=== PATIENT | male | born 1965 | race Caucasian/White ===

== ENCOUNTER → 2016-10-20 | Day surgery (SDC) | payer BC ==
[2016-10-13 08:23] VITALS: BMI 29.0
[~2016-10-20] VITALS: Ht 185.4 cm; Wt 102.3 kg
[~2016-10-20] MED LIST: LIDOCAINE HCL 2% 2 ML VIAL (20MG/ML) ONE; MIDAZOLAM HCL 1 MG/ML 2ML VIAL ONE; ONDANSETRON INJ 2 MG/ML 2 ML VIAL ONE; PROPOFOL IV EMULSION 10 MG/ML 20 ML VIAL IV ONE
--- NOTE | 2016-10-20 13:13 | Endo History and Physical ---
History & Physical Date of Service: Oct 20, 2016. Chief Complaint: Screening Referring Physician: Dr. Shah History of Present Illness 50 yo CM who presents for screening colonoscopy. Past Surgical History Hx Cardiac Surgery: No Hx Internal Defibrillator: No Hx Pacemaker: No Hx Abdominal Surgery: No Hx of Implantable Prosthesis: No Hx Post-Op Nausea and Vomiting: No Hx Cancer Surgery: No Hx Thoracic Surgery: No Hx Orthopedic: Yes (REPAIR BICEP LEFT ) Hx Urinary Tract Surgery: No Family History None Social History Smoking Status: Never Smoker Hx Substance Use: No Hx Alcohol Use: Yes (OCAS) Allergies Coded Allergies: No Known Allergies (Unverified , 10/13/16) Current Medications Reported Home Medications Medications Dose Route/Sig Max Daily Dose Days Date Category No Active Prescriptions or Reported Medications Rx Vital Signs Weight (Kilograms): 102.27 Height (Feet): 6 Height (Inches): 1 Physical Exam General Appearance: WD/WN, no apparent distress Respiratory/Chest: Auscultation: breath sounds normal Cardiovascular: Heart Auscultation: RRR Abdomen: Bowel Sounds: normal Inspection & Palpation: soft, non-distended, no tenderness, guarding & rebound Assessment and Plan Assessment: 50 yo CM who presents for screening colonoscopy. Plan: Proceed with colonoscopy.
[2016-10-20 13:14] VITALS: Ht 185.4 cm; Wt 102.3 kg
--- NOTE | 2016-10-20 13:51 | Discharge Instructions ---
Endoscopy Patient Instructions Date / Procedure(s) Performed Oct 20, 2016. Colonoscopy Allergy Information Coded Allergies: No Known Allergies (Unverified , 10/13/16) Discharge Date / Findings Oct 20, 2016. Colon polyps Internal hemorrhoids Medication Instructions Reported Home Medications Medications Dose Route/Sig Max Daily Dose Days Date Category No Active Prescriptions or Reported Medications Rx Provider Instructions Activity Restrictions - No exercising or heavy lifting for 24 hours. - Do not drink alcohol the day of the procedure. - Do not drive a car or operate machinery until the day after the procedure. - Do not make any important decisions or sign important papers in 24 hours after the procedure. Following Day: - Return to full activity which may include returning to work/school. Diet Start your diet with liquids and light foods (jello, soup, juice, toast). Then eat your usual diet if not nauseated. Treatment For Common After Affects For mild abdominal pain, bloating, or excessive gas: - Rest - Eat lightly - Lie on right side Follow-Up Information Follow-up with Dr. Shah as scheduled Anesthesia Information What You Should Know You have had a procedure that required some medicine to reduce anxiety and discomfort. This treatment is called moderate sedation. After receiving the treatment, you may be sleepy, but you will be able to breathe on your own. The effects of the treatment may last for several hours. Follow these instructions along with Activity/Diet recommendations noted above: * Do NOT do anything where dizziness or clumsiness would be dangerous. * Rest quietly at home today, then you can be up and about tomorrow. * Have a responsible person stay with you the rest of today. * You may have had an I.V. today. If so, you may take the dressing off later today. Recommendations Call your doctor if: * Trouble breathing * Continuous vomiting for more than 24 hours * Temperature above 101 degrees * Severe abdominal pain or bloating * Pain not relieved by pain medicine ordered * There is increased drainage or redness from any incision * A large amount of rectal bleeding greater than 2-3 tablespoons. (If you had a polyp/s removed or have hemorrhoids, a small amount of blood - from the rectum is to be expected.) * You have any unanswered questions or concerns. IN THE EVENT OF A SERIOUS EMERGENCY, GO TO THE NEAREST EMERGENCY ROOM Your discharge instructions were prepared by provider Aj Pearce. Patient Instructions Signature Page Gatito Bruner Patient (or Guardian) Signature/Date: I have read and understand the instructions given to me by my caregivers. Caregiver/RN/Doctor Signature/Date: The above-named patient and/or guardian has received patient instructions on this date. + Original Patient Signature Page (only) stays with chart. Please make copy for patient.
--- NOTE | 2016-10-20 13:52 | GI REPORT ---
Procedure Date: 10/20/2016 1:23 PM Procedure: Colonoscopy Indications: Screening for colorectal malignant neoplasm Medicines: Monitored Anesthesia Care Complications: No immediate complications. Estimated Blood Loss: Estimated blood loss: none. Procedure: Pre-Anesthesia Assessment: - Prior to the procedure, a History and Physical was performed, and patient medications and allergies were reviewed. The patient's tolerance of previous anesthesia was also reviewed. The risks and benefits of the procedure and the sedation options and risks were discussed with the patient. All questions were answered, and informed consent was obtained. Prior Anticoagulants: The patient has taken no previous anticoagulant or antiplatelet agents. ASA Grade Assessment: II - A patient with mild systemic disease. After reviewing the risks and benefits, the patient was deemed in satisfactory condition to undergo the procedure. After I obtained informed consent, the scope was passed under direct vision. Throughout the procedure, the patient's blood pressure, pulse, and oxygen saturations were monitored continuously. The Scope was introduced through the anus and advanced to the terminal ileum. The colonoscopy was performed without difficulty. The patient tolerated the procedure well. The quality of the bowel preparation was good. The terminal ileum, ileocecal valve, appendiceal orifice, and rectum were photographed. Findings: Three sessile polyps were found in the sigmoid colon and in the ascending colon. The polyps were 5 to 8 mm in size. These polyps were removed with a hot snare. Resection and retrieval were complete. Non-bleeding internal hemorrhoids were found during retroflexion. The hemorrhoids were small. Impression: - Three 5 to 8 mm polyps in the sigmoid colon and in the ascending colon, removed with a hot snare. Resected and retrieved. - Non-bleeding internal hemorrhoids. Recommendation: - Resume previous diet. - Continue present medications. - Repeat colonoscopy for surveillance based on pathology results. - Return to primary care physician as previously scheduled. Aj Pearce DO 10/20/2016 1:50:44 PM This report has been signed electronically. Note Initiated On: 10/20/2016 1:23 PM I attest to the content of the Intraoperative Record and orders documented therein, exceptions below
[2016-10-20 14:16] VITALS: BP 126/80; PULSE 56; O2SAT 97
--- NOTE | 2016-10-20 14:58 | Anesthesiology Progress Note ---
Anesthesia Post Op Note Date & Time Oct 20, 2016 at 14:57 Vital Signs Pain Intensity: 0 Vital Signs Past 12 Hours Date Time Temp Pulse Resp B/P Pulse Ox O2 Delivery O2 Flow Rate FiO2 10/20/16 14:16 56 16 126/80 97 Room Air 10/20/16 14:01 61 16 127/78 97 Room Air 10/20/16 13:46 76 16 133/79 98 Room Air 10/20/16 13:20 36.6 80 18 157/82 98 Room Air Notes Mental Status: alert / awake / arousable, participated in evaluation Pt Amnestic to Procedure: Yes Nausea / Vomiting: adequately controlled Pain: adequately controlled Airway Patency, RR, SpO2: stable & adequate BP & HR: stable & adequate Hydration State: stable & adequate Anesthetic Complications: no major complications apparent
== END | disposition home or self-care (01) ==
LOC: C.GI 12:23
PROVIDERS: ATTEND Internal Medicine
DX: Z12.11 Encounter for screening for malignant neoplasm of colon (principal); K63.5 Polyp of colon; K64.8 Other hemorrhoids; Z98.890 Other specified postprocedural states; Z68.29 Body mass index [BMI] 29.0-29.9, adult

== ENCOUNTER 2017-08-18 22:22 | Emergency (ER) | payer BC ==
[~2017-08-18] VITALS: Ht 182.9 cm; Wt 108.8 kg
[2017-08-18 22:24] VITALS: TEMP 36.7; Ht 182.9 cm; Wt 108.8 kg
--- NOTE | 2017-08-18 22:54 | EMERGENCY ROOM VISIT NOTE ---
History First contact with patient: 22:33 Chief Complaint: NOSE BLEED (MINOR) Stated Complaint: BLOODY NOSE History of Present Illness The patient is a 51 year old male who presents to the Emergency Room with complaints of nosebleeds. The patient reports that over the past 2 weeks, he has had frequent nosebleeds, anytime that he blows his nose. He states that the nosebleeds last for approximately 15 minutes. He plugs his nose with tissues and this stops the bleeding. He states these are occurring every 2-3 days. The patient does admit that he typically gets minor nosebleeds every year around this time. 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 He does have a humidifier in the house. He denies any lightheadedness/dizziness. He does not take anticoagulants. He denies any recent URI. Review of Systems A complete 10 point review of systems was reviewed with the patient with pertinent positives and negatives as per history of present illness. All else were negative. Past Medical/Surgical History Medical Problems: (1) No significant past medical history Surgical Problems: (1) No significant past surgical history Social History Smoking Status: Never Smoker Housing Status: lives with family Current/Historical Medications No Active Prescriptions or Reported Meds Physical Exam Vital Signs Date Time Temp Pulse Resp B/P (MAP) Pulse Ox O2 Delivery O2 Flow Rate FiO2 08/18/17 23:05 78 20 134/70 98 08/18/17 22:24 36.7 75 16 157/89 99 Room Air Physical Exam VITALS: Vitals are noted on the nurse's note and reviewed by myself. Vital signs stable. GENERAL: This is a 51-year-old male, in no acute distress, nondiaphoretic, well- developed well-nourished. SKIN: The skin was without rashes. EARS: External auditory canals clear, tympanic membranes pearly neumann without erythema or effusion bilaterally. EYES: Pupils equal round and reactive to light and accommodation. NOSE: No active bleeding. The nasal mucosa of bilateral naris is very friable, inflamed and erythematous. MOUTH: Mucous membranes moist. NEURO: Patient was alert and oriented to person place and time. Medical Decision & Procedures Medical Decision The patient was evaluated as above. He has been experiencing frequent nosebleeds. His nasal mucosa is very friable and inflamed appearing. I had a lengthy discussion with the patient regarding prevention of these nosebleeds. I discussed use of a humidifier in the bedroom and saline nasal spray/Vaseline in the nostrils. I advised him to use Afrin in the nostrils if he does incur a nosebleed and he was provided with nasal clips. He was advised to follow-up with ENT if he has recurrent nosebleeds despite this treatment. He verbalized understanding of my assessment and treatment plan and was discharged home in good condition. Medication Reconcilliation Current Medication List: was personally reviewed by me Blood Pressure Screening Patient's blood pressure: Normal blood pressure Impression Primary Impression: Epistaxis Departure Information Dispostion Home / Self-Care Condition GOOD Prescriptions No Active Prescriptions or Reported Meds Referrals Pro,Rc Adair M.D. (PCP) Patient Instructions My [facility] Additional Instructions You have been treated in the Emergency Department today for your Nose Bleed ( Epistaxis). You should consider using a humidifier to help moisten the air and decrease instances of nosebleeds. You can use ruou-rzo-liskwyl saline nasal sprays to help moisten the nasal mucosa and decrease instances of nosebleeds. You may also apply Vaseline to the inside of the nose daily to help moisten the tissue. If you do get a nosebleed, use 2 squirts of Afrin (oxymetazoline) in the affected nostril then apply the nasal clip for 15-20 minutes. If you have continued bleeding you should go to the emergency department. As with any trip to the Emergency Department, you should follow-up with your Primary Care Provider from today's visit. Return to the emergency department if your symptoms persist despite treatment plan outlined above or if the following symptoms occur: uncontrollable nosebleed , dizziness, lightheadedness, pre-syncope, or re-bleed.
[2017-08-18 23:05] VITALS: BP 134/70; PULSE 78; O2SAT 98
== END 2017-08-18 23:06 | disposition home or self-care (01) ==
LOC: C.EDB 22:23 → C.EDC 23:06
DX: R04.0 Epistaxis (principal)

== ENCOUNTER 2021-12-20 10:13 | Inpatient (IN) ==
[2021-12-20] MEDS ORDERED: SODIUM CHLORIDE 0.9% 1000ML 1,000 ML IV ONE (10:25)
--- NOTE | 2021-12-20 10:38 | XRay Report ---
XR chest 1V portable CLINICAL HISTORY: Chest Pain. COMPARISON STUDY: 11/15/2018 TECHNIQUE: 1 view of the chest FINDINGS: Single frontal view of the chest demonstrates the heart size to be accentuated by decreased inspirato ry effort. There is elevation of hemidiaphragms and crowding the bronchovascular markings at the lung bases. However, there is evidence for mild central vascular congestion. The presence of small bilate ral pleural effusions cannot be excluded. Follow-up PA and lateral radiographs would be helpful for f urther evaluation. There are no confluent alveolar opacities present . There is no acute osseous path ology. IMPRESSION: 1. Decreased inspiration with evidence for mild central vascular congestion. 2. Suspicion of small bilateral pleural effusions and follow-up PA and lateral radiographs are recomm ended. ACT 112: Negative or not required by law. Electronically signed by: Elroy Lange M.D. 12/20/2021 10:37 AM
[2021-12-20 10:39] LABS: Basophils # (auto) 0.01 K/uL (0-0.2); Basophils % (auto) 0.1 %; Eosinophils # (auto) 0.74 K/uL (0-0.5); Eosinophils % (auto) 7.1 %; Hematocrit (blood only) 43.1 % (42-52); Hemoglobin 14.3 g/dL (14.0-18.0); Immature Granulocytes # (auto) 0.11 K/uL (0.00-0.02); Immature Granulocytes % (auto) 1.1 %; Lymphocytes # (auto) 0.86 K/uL (1.2-3.4); Lymphocytes % (auto) 8.2 %; Mean Corpuscular Hemoglobin 28.8 pg (25-34); Mean Corpuscular Hgb Conc 33.2 g/dL (32-36); Mean Corpuscular Volume 86.9 fL (80-100); Mean Platelet Volume 9.6 fL (7.4-10.4); Monocytes % (auto) 5.7 %; Neutrophils # (auto) 8.14 K/uL (1.4-6.5); Neutrophils % (auto) 77.8 %; Platelet Count 219 K/uL (130-400); RDW Coefficient of Variation 13.6 % (11.5-14.5); Red Blood Count 4.96 M/uL (4.7-6.1); White Blood Count 10.46 K/uL (4.8-10.8)
[2021-12-20 11:01] LABS: Albumin Globulin Ratio 1.4 (0.9-2); BUN Creatinine Ratio 19.2 (10-20); Bilirubin,Total 0.9 mg/dl (0.2-1.0); Creatinine Clr Calc Pharmacy 87.2 ml/min; Est GFR (African American) 77.9 ml/min; Est GFR (Non-African American) 67.2 ml/min; Globulin 2.9 gm/dl (2.5-4.0); Magnesium 2.3 mg/dl (1.7-2.4); Phosphorus 3.1 mg/dl (2.5-4.9); Potassium 3.7 mmol/L (3.5-5.1); Total Protein 6.9 gm/dl (6.0-8.3)
[2021-12-20 11:16] LABS: Troponin I High Sensitivity 104.2 pg/ml (0-20)
[2021-12-20 11:29] LABS: Influenza A virus by PCR Negative (Neg); Influenza B virus by PCR Negative (Neg); RSV by PCR Negative (Neg); SARS CoV2 RNA(COVID-19) InHosp NEGATIVE (Negative)
--- NOTE | 2021-12-20 12:32 | Electrocardiogram Report ---
Test Reason : Blood Pressure : / mmHG Vent. Rate : 144 BPM Atrial Rate : 144 BPM P-R Int : 216 ms QRS Dur : 090 ms QT Int : 252 ms P-R-T Axes : 000 076 -10 degrees QTc Int : 390 ms Atrial flutter with rapid ventricular response Abnormal ECG When compared with ECG of 15-NOV-2018 22:01, Atrial flutter has replaced sinus rhythm Confirmed by Wiley Tapia ([id number]) on 12/20/2021 12:32:21 PM Referred By: REFERRED SELF Confirmed By:Riley Tapia
--- NOTE | 2021-12-20 13:47 | Ultrasound Report ---
US gallbladder CLINICAL HISTORY: upper abdominal pain. COMPARISON: None. TECHNIQUE: Multiple grayscale and color images of the right upper quadrant of the abdomen. FINDINGS: The study is limited by overlying bowel gas. Pancreas: The imaged portion of the pancreas is within normal limits with no focal mass or peripancre atic fluid collection identified. Liver: The liver is homogeneous in echogenicity There is no evidence for a focal mass. There is no in trahepatic biliary duct dilatation. Gallbladder: The gallbladder is well distended with no evidence of cholelithiasis, wall thickening or pericholecystic edema. Common Bile Duct: (CBD): It is normal in size measuring 5 mm Inferior Vena Cava (IVC): The imaged IVC is patent. Right kidney: There is no evidence for hydronephrosis, calculus or gross renal mass. The kidney is no rmal in size. IMPRESSION: 1. Essentially negative limited right upper quadrant abdominal ultrasound. ACT 112: Negative or not required by law. Electronically signed by: Elroy Lange M.D. 12/20/2021 1:46 PM
--- NOTE | 2021-12-20 14:35 | History & Physical Report ---
Date of Service December 20, 2021 Assessment & Plan (1) Atrial flutter with rapid ventricular response: (2) Elevated troponin: Plan: Atrial flutter with rapid ventricular response Currently sinus rhythm Elevated troponins may be related to this. Get 2D echo Telemetry monitoring Start metoprolol 12.5 mg twice daily Cardiology consult Patient denied any history of hypertension, DE/CVA/ischemic vascular disease, diabetes. However, pressure measurement has been between 130s over 80s to 150/99 in the ER this admission. Some previous records from 2019 also suggested some blood pressure of 150s over 90s. Patient probably has history of hypertension. His [id number] score is likely 0-1 Considering all the above and elevated trop, will start on heparin drip for now until full workup and Cardiology evaluation. May need to be on only antiplatelet on discharge Trend trop (3) Elevated LFTs: Plan: ALT 60, alk phos is 185. These are mildly elevated. Review of CT abdomen pelvis from 12/18/2021 noted pericholecystic fluid with findings suggestive of possible cholecystitis. However, considering absent of GI symptoms, no leukocytosis, no fever, unremarkable gall bladder USS at this time; will only monitor LFTs and hold off initiating treatment for acute cholecystitis Monitor LFTs (4) Cough: Plan: Chest x-ray noted suspicion of small bilateral pleural effusion and PA and lateral radiographs recommended. Will get PA and lateral chest x-rays. Antitussives as needed (5) DVT prophylaxis: Plan: Heparin drip as noted above History of Present Illness Chief Complaint: Cough, rapid heart rate. Primary Care Provider: Deb Baca DO 55-year-old man with no known chronic medical problems who presents from urgent care for rapid heart rate. Patient reported he started having abdominal pain 6 days ago and was central abdomen, moderate, associated with heartburns. Started having dry cough 5 days ago. The abdominal pain patient saw PCP 3 days ago who recommended abdominal CT which was done and showed . Pericholecystic fluid with some fat stranding. Patient reported that abdominal pain has resolved since yesterday. However, continues to have persistent dry cough associated with some chest discomfort with coughing. Denies shortness of breath, fevers, chills Denies abdominal pain, nausea, vomiting, diarrhea, constipation Denies dysuria, frequency, urgency, hematuria Patient presented to urgent care for the cough and was noted to have elevated heart rate and was sent to the ER. In ER was noted to be in a flutter with RVR. Got IV fluids and spontaneously reverted to sinus rhythm. During my evaluation, patient flipped to Aflutter on monitor and reverted back to sinus after some minutes. Patient denies any chronic home medication except for [id number] cough medicine he took last few days. Denies any known allergies No surgical history No chronic medical problems Denies smoking Denies illicit drug use Drinks alcohol occasionally Allergies Allergy/AdvReac Type Severity Reaction Status Date / Time No Known Allergies Allergy Unverified 01/29/19 15:27 Home Medications Medication Instructions Recorded Confirmed Type No Known Home Medications 01/29/19 01/29/19 History Past Med/Surg History Medical History (Updated 12/20/21 @ 14:53 by Lizett Banda MD) No significant past medical history Family History (Updated 01/29/19 @ 15:34 by Loislou Kemp) Sister Breast cancer Mother Stroke Other Diabetes Social History Smoking Status: Never smoker Preferred Language: Icelandic Current Living Situation: Spouse current occupational status: employed Feels Safe at Home: Yes Review of Systems Review of Systems: All systems reviewed & are unremarkable except as noted in HPI & below Physical Exam Constitutional: + well hydrated; no acute distress Eyes: PERRL, conjunctivae normal, anicteric sclerae ENMT: external ear and nose normal, oropharynx normal Respiratory: normal respiratory effort, lungs clear to auscultation Cardiovascular: Rate/Rhythm: regular rate and regular rhythm S1 S2 Gastrointestinal (Abdomen): normal bowel sounds, soft, nontender, no hepatosplenomegaly Musculoskeletal: no cyanosis or clubbing, extremities motor strength 5/5 Neurologic: PERRL, EOMI, accommodation nl, no face palsy, no dysarthria Psychiatric: A+Ox3, euthymic affect Results & Data Results & Data ([facility]) Vital Signs (Past 12 Hours) Vital Signs Temp Pulse Pulse Resp BP BP Pulse Ox 12/20/21 13:31 82 16 134/81 96 12/20/21 12:26 88 16 131/81 95 12/20/21 10:55 89 20 96 12/20/21 10:40 122 H 20 136/95 95 12/20/21 10:29 152 H 20 156/99 H 95 12/20/21 10:28 12/20/21 10:16 36.6 C 143 H 18 134/87 99 Laboratory Results Abnormal lab results 12/20/21 12/20/21 12/20/21 Range/Units 10:25 10:25 12:18 Neut # (Auto) 8.14 H (1.4-6.5) K/uL Lymph # (Auto) 0.86 L (1.2-3.4) K/uL [place] # (Auto) 0.60 H (0.11-0.59) K/uL Eos # (Auto) 0.74 H (0-0.5) K/uL Immature Gran # (Auto) 0.11 H (0.00-0.02) K/uL Glucose 162 H (70-99(Fasting)) mg/dl ALT 60 H (7-52) U/L Alkaline Phosphatase 185 H (34-104) U/L Troponin I High Sens 104.2 H* 108.3 H* (0-20) pg/ml Diagnostic Findings Gallbladder ultrasound Pancreas: The imaged portion of the pancreas is within normal limits with no focal mass or peripancreatic fluid collection identified. Liver: The liver is homogeneous in echogenicity There is no evidence for a focal mass. There is no intrahepatic biliary duct dilatation. Gallbladder: The gallbladder is well distended with no evidence of cholelithiasis, wall thickening or pericholecystic edema. Common Bile Duct: (CBD): It is normal in size measuring 5 mm Inferior Vena Cava (IVC): The imaged IVC is patent. Right kidney: There is no evidence for hydronephrosis, calculus or gross renal mass. The kidney is normal in size. IMPRESSION: 1. Essentially negative limited right upper quadrant abdominal ultrasound. Chest x-ray Single frontal view of the chest demonstrates the heart size to be accentuated by decreased inspiratory effort. There is elevation of hemidiaphragms and crowding the bronchovascular markings at the lung bases. However, there is evidence for mild central vascular congestion. The presence of small bilateral pleural effusions cannot be excluded. Follow-up PA and lateral radiographs would be helpful for further evaluation. There are no confluent alveolar opacities present . There is no acute osseous pathology. IMPRESSION: 1. Decreased inspiration with evidence for mild central vascular congestion. 2. Suspicion of small bilateral pleural effusions and follow-up PA and lateral radiographs are recommended.
--- NOTE | 2021-12-20 16:31 | Emergency Department Note ---
Impression & Plan Atrial flutter with rapid ventricular response, Elevated troponin, Cough, Dehydration ED Provider Note NAME: SILVERIO MACEDO AGE: 55 SEX: M ARRIVES VIA: Walk-In INFORMANT: ED PROVIDER(S): Husam Stauffer MD CHIEF COMPLAINT: Atrial flutter, referred. PLAN: Disposition: Admit MEDICAL DECISION MAKING: The patient is a pleasant 55-year-old gentleman with a past medical history of who presents to the emergency department for evaluation of tachycardia after the patient presented to urgent care for evaluation of cough and was hoping to get "cough medicine". The patient denies having any sensation of palpitations or chest pain. He reports that he has been dealing with abdominal pain over the past week that was intermittently related to his gallbladder and had an outpatient CT scan performed this past week. He reports because of his abdomina l symptoms he has not been eating or drinking much at all for the past week. He denies any fevers, chills, diarrhea or urinary symptoms. On arrival, the patient is in no acute distress, afebrile with heart rate in the 130-150s and vital signs otherwise stable. He appears clinically dry. Lungs are clear. Abdomen is benign. EKG was performed and demonstrates atrial flutter in the 140s without overt acute ischemia. CXR with nonspecific bronchovascular congestion of lower lung lo. Small bilateral pleural effusions are noted. WBC, H/H and platelets within normal limits. Chemistry without metabolic acidosis. Electrolytes without significant abnormality. ALT is elevated at 60, nonspecific. Initial high-sensitivity troponin 104 high-sensitivity troponin 108, stable nonspecific. COVID-19 PCR and influenza PCR were negative. Upon reevaluation the patient was feeling improved after IV fluid hydration with heart rate normal sinus 80-90s. Formal Gallbladder US was negative for acute pr ocess. Given the patient does not sense his fast heart rate, it is unclear how long or frequently he may have had aflutter with or without RVR. Findings were reviewed with the patient and his at the bedside. Given the patient's new onset paroxysmal atrial flutter with elevated troponin we did agree with plan for admission for further evaluation and management. Case was discussed with Dr. Veronika Rob hospitalist, who will evaluate the patient for admission. Nursing notes reviewed and agree them. Prior medical records reviewed Vital Signs: reviewed and remarkable for tachycardia. Differential diagnosis: Premature contractions, electrolyte abnormality, cardiac dysrhythmia, thyroid dysfunction, pulmonary embolism, infection, gastrointestinal, as well as other pathologies. ER treatment provided: See below. Diagnostics interpreted by me: ECG 1024: Atrial flutter with RVR, 144 bpm, no ectopy, no overt ST elevation or depression, QTC 390, QRS 90. ECG 1230: Normal sinus rhythm, 84 bpm, no ectopy, no overt ST elevation or depression, QTC 437, QRS 84. Cardiac Monitoring: An order for continuous cardiac monitoring was placed and demonstrated atrial flutter, RVR, 144 bpm, no ectopy. Laboratory studies: See below Imaging studies: See below Consultation(s): Case was discussed with Dr. Veronika Rob hospitalist, who will evaluate the patient for admission. HPI: The patient is a pleasant 55-year-old gentleman with a past medical history of who presents to the emergency department for evaluation of tachycardia after the patient presented to urgent care for evaluation of cough and was hoping to get "cough medicine". The patient denies having any sensation of palpitations or chest pain. He reports that he has been dealing with abdominal pain over the past week that was intermittently related to his gallbladder and had an outpatient CT scan performed this past week. He reports because of his abdominal symptoms he has not been eating or drinking much at all for the past week. He denies any fevers, chills, diarrhea or urinary symptoms. ROS: See above HPI for pertinent positives & negatives. A total of 10 systems reviewed and were otherwise negative. VITALS:See Below PHYSICAL EXAMINATION: GENERAL: Awake, alert, well-appearing, in no distress HENT: Normocephalic, atraumatic. Oropharynx with dry mucous membranes and otherwise unremarkable. EYES: Normal conjunctiva. Sclera non-icteric. NECK: Supple. No nuchal rigidity. FROM. No JVD. RESPIRATORY: Clear to auscultation. CARDIAC: Tachycardic rate, normal rhythm. Extremities warm and well perfused. Pulses equal. ABDOMEN: Soft, non-distended. No tenderness to palpation. No rebound or guarding. No masses. RECTAL: Deferred. MUSCULOSKELETAL: Chest examination reveals no tenderness. The back is symmetrical on inspection without obvious abnormality. There is no CVA tenderness to palpation. No joint edema. LOWER EXTREMITIES: Calves are equal size bilaterally and non-tender. No edema. No discoloration. NEURO: Normal sensorium. No sensory or motor deficits noted. SKIN: No rash or jaundice noted. I have personally spent greater than 35 minutes of critical care time in the direct management of this patient. This includes bedside care, interpretation of diagnostic studies, and testing, discussion with consultants, patient, and family members, and other required patient management activities. This 35 minutes is in excess of all separately billable procedures. Husam Stauffer MD Past Med/Surg History Medical History No significant past medical history Family History Sister Breast cancer Mother Stroke Other Diabetes Social History Smoking Status: Never smoker Preferred Language: Nicaraguan Current Living Situation: Spouse current occupational status: employed Feels Safe at Home: Yes Allergies Allergies Allergy/AdvReac Type Severity Reaction Status Date / Time No Known Allergies Allergy Unverified 12/20/21 15:59 Home Meds Home Medications Medication Instructions Recorded Confirmed No Known Home Medications 01/29/19 12/20/21 Results & Data (ED) Vital Signs Vital Signs - 24 hr 12/20/21 10:16 12/20/21 10:25 12/20/21 10:28 Temperature 36.6 C Temperature Source Temporal Artery Scan Pulse Rate 143 H Pulse Rate [Left Apical] Pulse Rhythm [Left Apical] Pulse Strength [Left Apical] Respiratory Rate 18 Respiratory Effort / Characteristics Non-Labored Respiratory Depth Normal Respiratory Pattern Regular Blood Pressure 134/87 Blood Pressure [Left Arm] Blood Pressure Mean 102 Blood Pressure Mean [Left Arm] Blood Pressure Position [Left Arm] Pulse Oximetry 99 95 Oxygen Delivery Method Room Air Room Air Room Air Sepsis Recent Fever Within 48 Hours No Sepsis New/Unexplained Change in Mental Status No Sepsis Action Taken by Nursing No Action Required 12/20/21 10:29 12/20/21 10:40 12/20/21 10:55 Temperature Temperature Source Pulse Rate Pulse Rate [Left Apical] 152 H 122 H 89 Pulse Rhythm [Left Apical] Regular Regular Regular Pulse Strength [Left Apical] Normal Normal Normal Respiratory Rate 20 20 20 Respiratory Effort / Characteristics Non-Labored Non-Labored Non-Labored Respiratory Depth Normal Normal Normal Respiratory Pattern Blood Pressure Blood Pressure [Left Arm] 156/99 H 136/95 Blood Pressure Mean Blood Pressure Mean [Left Arm] 118 108 Blood Pressure Position [Left Arm] Lying Lying Pulse Oximetry 95 95 96 Oxygen Delivery Method Room Air Room Air Room Air Sepsis Recent Fever Within 48 Hours Sepsis New/Unexplained Change in Mental Status Sepsis Action Taken by Nursing 12/20/21 12:26 12/20/21 13:31 12/20/21 14:39 Temperature Temperature Source Pulse Rate Pulse Rate [Left Apical] 88 82 97 H Pulse Rhythm [Left Apical] Regular Regular Pulse Strength [Left Apical] Normal Normal Respiratory Rate 16 16 20 Respiratory Effort / Characteristics Non-Labored Non-Labored Respiratory Depth Normal Normal Respiratory Pattern Blood Pressure Blood Pressure [Left Arm] 131/81 134/81 142/95 H Blood Pressure Mean Blood Pressure Mean [Left Arm] 97 98 110 Blood Pressure Position [Left Arm] Lying Lying Pulse Oximetry 95 96 96 Oxygen Delivery Method Room Air Room Air Room Air Sepsis Recent Fever Within 48 Hours Sepsis New/Unexplained Change in Mental Status Sepsis Action Taken by Nursing Laboratory Data Attestation: I reviewed the patient's lab results. Result diagrams: 12/20/21 10:25 12/20/21 10:25 Lab Results 12/20/21 12/20/21 12/20/21 Range/Units 10:25 10:25 10:25 WBC 10.46 (4.8-10.8) K/uL RBC 4.96 (4.7-6.1) M/uL Hgb 14.3 (14.0-18.0) g/dL Hct 43.1 (42-52) % MCV 86.9 (80-100) fL MCH 28.8 (25-34) pg MCHC 33.2 (32-36) g/dL RDW Std Deviation 43.0 (36.4-46.3) fL RDW Coeff of Gentry 13.6 (11.5-14.5) % Plt Count 219 (130-400) K/uL MPV 9.6 (7.4-10.4) fL Immature Gran % (Auto) 1.1 % Neut % (Auto) 77.8 % Lymph % (Auto) 8.2 % Jackson % (Auto) 5.7 % Eos % (Auto) 7.1 % Baso % (Auto) 0.1 % Neut # (Auto) 8.14 H (1.4-6.5) K/uL Lymph # (Auto) 0.86 L (1.2-3.4) K/uL Jackson # (Auto) 0.60 H (0.11-0.59) K/uL Eos # (Auto) 0.74 H (0-0.5) K/uL Baso # (Auto) 0.01 (0-0.2) K/uL Immature Gran # (Auto) 0.11 H (0.00-0.02) K/uL Sodium 136 (136-145) mmol/L Potassium 3.7 (3.5-5.1) mmol/L Chloride 100 (98-107) mmol/L Carbon Dioxide 29 (21-32) mmol/L Anion Gap 7 (3-11) BUN 23 (6-23) mg/dl Creatinine 1.20 (0.6-1.4) mg/dl Est Cr Clr Drug Dosing 87.2 ml/min Est GFR ( Amer) 77.9 ml/min Est GFR (Non-Af Amer) 67.2 ml/min BUN/Creatinine Ratio 19.2 (10-20) Glucose 162 H (70-99(Fasting)) mg/dl Calcium 9.0 (8.5-10.1) mg/dl Phosphorus 3.1 (2.5-4.9) mg/dl Magnesium 2.3 (1.7-2.4) mg/dl Total Bilirubin 0.9 (0.2-1.0) mg/dl AST 26 (13-39) U/L ALT 60 H (7-52) U/L Alkaline Phosphatase 185 H (34-104) U/L Troponin I High Sens 104.2 H* (0-20) pg/ml Total Protein 6.9 (6.0-8.3) gm/dl Albumin 4.0 (3.4-5.0) gm/dl Globulin 2.9 (2.5-4.0) gm/dl Albumin/Globulin Ratio 1.4 (0.9-2) Lipase 62 (11-82) U/L TSH 0.935 (0.300-4.500) uIu/ml SARS-CoV-2 (PCR) (Negative) Influenza Type A (PCR) (Neg) Influenza Type B (PCR) (Neg) RSV (RT-PCR) (Neg) 06/12/22 06/12/22 Range/Units 10:43 12:18 WBC (4.8-10.8) K/uL RBC (4.7-6.1) M/uL Hgb (14.0-18.0) g/dL Hct (42-52) % MCV (80-100) fL MCH (25-34) pg MCHC (32-36) g/dL RDW Std Deviation (36.4-46.3) fL RDW Coeff of Gentry (11.5-14.5) % Plt Count (130-400) K/uL MPV (7.4-10.4) fL Immature Gran % (Auto) % Neut % (Auto) % Lymph % (Auto) % Jackson % (Auto) % Eos % (Auto) % Baso % (Auto) % Neut # (Auto) (1.4-6.5) K/uL Lymph # (Auto) (1.2-3.4) K/uL [place] # (Auto) (0.11-0.59) K/uL Eos # (Auto) (0-0.5) K/uL Baso # (Auto) (0-0.2) K/uL Immature Gran # (Auto) (0.00-0.02) K/uL Sodium (136-145) mmol/L Potassium (3.5-5.1) mmol/L Chloride (98-107) mmol/L Carbon Dioxide (21-32) mmol/L Anion Gap (3-11) BUN (6-23) mg/dl Creatinine (0.6-1.4) mg/dl Est Cr Clr Drug Dosing ml/min Est GFR ( Amer) ml/min Est GFR (Non-Af Amer) ml/min BUN/Creatinine Ratio (10-20) Glucose (70-99(Fasting)) mg/dl Calcium (8.5-10.1) mg/dl Phosphorus (2.5-4.9) mg/dl Magnesium (1.7-2.4) mg/dl Total Bilirubin (0.2-1.0) mg/dl AST (13-39) U/L ALT (7-52) U/L Alkaline Phosphatase (34-104) U/L Troponin I High Sens 108.3 H* (0-20) pg/ml Total Protein (6.0-8.3) gm/dl Albumin (3.4-5.0) gm/dl Globulin (2.5-4.0) gm/dl Albumin/Globulin Ratio (0.9-2) Lipase (11-82) U/L TSH (0.300-4.500) uIu/ml SARS-CoV-2 (PCR) NEGATIVE (Negative) Influenza Type A (PCR) Negative (Neg) Influenza Type B (PCR) Negative (Neg) RSV (RT-PCR) Negative (Neg) Administered Medications Heparin Sodium/Dextrose (Heparin Sodium/Dextrose) 25,000 units in 500 mls @ 20 mls/hr IV .Q24H [facility]; Protocol Stop: 01/19/22 19:14 Last Admin: 12/20/21 19:36 Dose: 1,000 units/hr, 20 mls/hr Documented by: [id number] Cosigned by: [id number] Discontinued Medications Heparin Sodium (Porcine) (Heparin Sod (Porcine) 1000 Unit/Ml) 4,000 units IV NOW ONE Stop: 12/20/21 19:16 Last Admin: 12/20/21 19:35 Dose: 4,000 units Documented by: [id number] Cosigned by: [id number] Sodium Chloride (Nss 1000ml) 1,000 mls @ 999 mls/hr IV .Q1H1M ONE Stop: 12/20/21 11:25 Last Infusion: 12/20/21 12:22 Dose: 0 mls/hr Documented by: [id number] Admin: 12/20/21 10:40 Dose: 999 mls/hr Documented by: [id number] Imaging Data Radiologist's Impression: Chest X-Ray 12/20/21 10:25 XR chest 1V portable CLINICAL HISTORY: Chest Pain. COMPARISON STUDY: 11/15/2018 TECHNIQUE: 1 view of the chest FINDINGS: Single frontal view of the chest demonstrates the heart size to be accentuated by decreased inspiratory effort. There is elevation of hemidiaphragms and crowding the bronchovascular markings at the lung bases. However, there is evidence for mild central vascular congestion. The presence of small bilateral pleural effusions cannot be excluded. Follow-up PA and lateral radiographs would be helpful for further evaluation. There are no confluent alveolar opacities present . There is no acute osseous pathology. IMPRESSION: 1. Decreased inspiration with evidence for mild central vascular congestion. 2. Suspicion of small bilateral pleural effusions and follow-up PA and lateral radiographs are recommended. ACT 112: Negative or not required by law. Electronically signed by: Elroy Lange M.D. 12/20/2021 10:37 AM Gallbladder Ultrasound 12/20/21 10:38 US gallbladder CLINICAL HISTORY: upper abdominal pain. COMPARISON: None. TECHNIQUE: Multiple grayscale and color images of the right upper quadrant of the abdomen. FINDINGS: The study is limited by overlying bowel gas. Pancreas: The imaged portion of the pancreas is within normal limits with no focal mass or peripancreatic fluid collection identified. Liver: The liver is homogeneous in echogenicity There is no evidence for a focal mass. There is no intrahepatic biliary duct dilatation. Gallbladder: The gallbladder is well distended with no evidence of cholelithiasis, wall thickening or pericholecystic edema. Common Bile Duct: (CBD): It is normal in size measuring 5 mm Inferior Vena Cava (IVC): The imaged IVC is patent. Right kidney: There is no evidence for hydronephrosis, calculus or gross renal mass. The kidney is normal in size. IMPRESSION: 1. Essentially negative limited right upper quadrant abdominal ultrasound. ACT 112: Negative or not required by law. Electronically signed by: Elroy Lange M.D. 12/20/2021 1:46 PM Discharge Plan Visit Data Chief Complaint: Arrhythmia/Palpitations Stated Complaint: IRREGULAR HEART RATE Discharge Problem: Atrial flutter with rapid ventricular response, Elevated troponin, Cough, Dehydration
--- NOTE | 2021-12-20 17:29 | Electrocardiogram Report ---
Test Reason : Blood Pressure : / mmHG Vent. Rate : 084 BPM Atrial Rate : 084 BPM P-R Int : 162 ms QRS Dur : 084 ms QT Int : 370 ms P-R-T Axes : 064 074 049 degrees QTc Int : 437 ms Normal sinus rhythm Normal ECG When compared with ECG of 20-DEC-2021 10:24, Sinus rhythm has replaced Atrial flutter Vent. rate has decreased BY 60 BPM Nonspecific T wave abnormality has replaced inverted T waves in Inferior leads Confirmed by Wiley Tapia ([id number]) on 12/20/2021 5:28:53 PM Referred By: REFERRED SELF Confirmed By:Riley Tapia
[2021-12-20 18:48] LABS: INR 1.1 (0.9-1.1); Partial Thromboplastin Time 26.3 Seconds (21.0-31.0); Prothrombin Time 12.1 Seconds (9.0-12.0)
[2021-12-20] MEDS ORDERED: Heparin IV Adult Wt-Based Low-Dose WITH Bolus Protocol IV SCH (19:00)
[2021-12-20] MEDS ORDERED: HEPARIN SOD (PORCINE) 1000 UNIT/ML IV ONE (19:15)
[2021-12-20] MEDS: HEPARIN SODIUM/DEXTROSE 25,000 UNITS/500 ML BAG IV SCH (19:36)
[2021-12-20] MEDS: METOPROLOL TARTRATE 25 MG TAB PO SCH (22:02)
[2021-12-21 00:54] LABS: Partial Thromboplastin Ratio 1.5; Partial Thromboplastin Time 40.1 Seconds (21.0-31.0)
[2021-12-21 02:27] LABS: Partial Thromboplastin Time 26.4 Seconds (21.0-31.0)
[2021-12-21] MEDS ORDERED: HEPARIN SOD (PORCINE) 1000 UNIT/ML IV ONE ×2 (03:13→11:00)
[2021-12-21 05:44] LABS: Hematocrit (blood only) 39.6 % (42-52); Hemoglobin 13.1 g/dL (14.0-18.0); Mean Corpuscular Hemoglobin 28.7 pg (25-34); Mean Corpuscular Hgb Conc 33.1 g/dL (32-36); Mean Corpuscular Volume 86.8 fL (80-100); Mean Platelet Volume 9.8 fL (7.4-10.4); Platelet Count 222 K/uL (130-400); RDW Coefficient of Variation 13.7 % (11.5-14.5); Red Blood Count 4.56 M/uL (4.7-6.1); White Blood Count 10.34 K/uL (4.8-10.8)
[2021-12-21 06:07] LABS: Albumin Globulin Ratio 1.4 (0.9-2); Albumin Level 3.5 gm/dl (3.4-5.0); BUN Creatinine Ratio 17.9 (10-20); Bilirubin,Total 0.6 mg/dl (0.2-1.0); Calcium 8.6 mg/dl (8.5-10.1); Creatinine Clr Calc Pharmacy 93.4 ml/min; Est GFR (African American) 84.7 ml/min; Globulin 2.5 gm/dl (2.5-4.0); Potassium 4.3 mmol/L (3.5-5.1)
[2021-12-21 07:35] LABS: Estimated Average Glucose 131 mg/dl; Hemoglobin A1C 6.2 % (4.5-5.6)
[2021-12-21] MEDS: METOPROLOL TARTRATE 25 MG TAB PO SCH (08:21)
--- NOTE | 2021-12-21 08:52 | Cardiology Consultation ---
Date of Consultation December 21, 2021 Assessment & Plan (1) Atrial flutter with rapid ventricular response: (2) Elevated troponin: (3) Hypertension: (4) Pericardial effusion: 55-year-old male with new onset atrial flutter. Has been transitioning between atrial flutter and normal sinus rhythm throughout his hospital stay. Patient asymptomatic. Found to have an elevated troponin, chest pain-free. Echocardiogram showed a preserved LVEF of 60 to 65% without WMA. Mild to moderate circumferential pericardial effusion noted. Elevated troponin likely due to new onset atrial flutter with rapid ventricular rates. 1. Patient would be a good candidate for 3 day sotalol load with possible D CCV, patient agreeable. Stop Metoprolol, start Sotalol 80 mg BID 2. Continue to monitor electrolytes and replete for a potassium goal of 4.0 and mag goal of 2.0 3. EKG in the am to reassess QTC 4. Continue IV heparin infusion x48 hours- consideration of DOAC prior to discharge. 5. Consideration for outpatient stress testing to rule out ischemic cause of new onset atrial flutter 6. In terms of the pericardial effusion- patient is currently asymptomatic. He did recently have a viral illness. We will refrain from treatment at this time. Supervising Physician Co-Signing Physician Notes Patient seen and examined with GABRIEL Her. Agree with findings and assessment as above. Has been in and out of atrial flutter. Will start 3 day Sotalol load to maintain sinus rhythm. Eliquis prior to discharge. Unclear etiology of pericardial effusion, lyme pending. History of Present Illness Reason for Consultation: Atrial flutter [facility] Attending Physician: Lizett Banda MD History of Present Illness 55-year-old male with no known medical history. Per last PCP note 12/2021 has not seen a physician for over 15 years. Initially presented to urgent care to be evaluated for respiratory symptoms. Noted a cough x3-5 days, abdominal discomfort, and some chest tightness/heartburn. EKG obtained showing atrial flutter, 130 bpm. In the emergency department patient received IV fluids and spontaneously reverted to sinus rhythm. Did take [id number] cough medicine for a few days (Delsym and generic cough and cold med) Patient was started on a heparin drip and metoprolol tartrate 12.5 mg twice daily was added. Chest x-ray: Mild central vascular congestion, suspicion of small bilateral pleural effusions HS Troponin elevated: 104.2>>108.3>>360.2>>372.4 EKG initially atrial flutter with RVR, repeat EKG showing normal sinus rhythm. Echo: LVEF 60-65%, mild concentric LVH, no significant valvular disease, mild to moderate circumferential pericardial effusion more pronounced posteriorly without hemodynamic compromise. Tele: Transitioning between atrial flutter rates (110-120s) to SR (rates 70-80s) Upon entrance into the room patient resting comfortably in bed without complaint. Did eat breakfast this am. Denies any chest pain, sob, palpitations, dizziness, or syncope. Normally active without exertional concerns. 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 Patient has concerns regarding sleep apnea- has noted snoring and apnea prior. Non smoker. occasional alcohol use (2-3 beers/week), no illicit drug use. No prior history of heart denies. HTN noted- but not formal diagnosis in the past. Family history: mother has DM, no heart disease to note. Allergies Allergy/AdvReac Type Severity Reaction Status Date / Time No Known Allergies Allergy Unverified 12/20/21 15:59 Home Medications Medication Instructions Recorded Confirmed Type No Known Home Medications 01/29/19 12/20/21 History Patient History Medical History No significant past medical history Family History Sister Breast cancer Mother Stroke Other Diabetes Social History Smoking Status: Never smoker Second Hand Exposure: No; Do You Dip or Chew Tobacco: No; Tobacco Cessation Education Requested by Patient: No Hx Alcohol Use: Yes Alcohol type: beer Hx Substance Use: No Preferred Language: Malagasy Communication Ability: Effective Entry Operator Required: No Beliefs That Will Affect Care: None Current Living Situation: Spouse current occupational status: employed Other Information That Helps Us Care for You: No Feels Safe at Home: Yes Safety Concerns: Feels Safe At This Time Assistive Devices: None Review of Systems Review of Systems: All systems reviewed & are unremarkable except as noted in HPI & below Physical Exam Constitutional: WD/WN, vitals as above + acute distress Eyes: PERRL, conjunctivae normal, anicteric sclerae Neck: normal visual inspection and trachea midline Respiratory: normal respiratory effort, + respiratory distress and + cough; no labored breathing Auscultation: lungs clear to auscultation bilaterally Cardiovascular: Rate/Rhythm: regular rate and regular rhythm (occasional irregularity and tachycardia ) Heart Sounds: normal S1 and normal S2; no murmur Vessels: no JVD Extremities: normal capillary refill Gastrointestinal (Abdomen): Inspection/Auscultation: abdomen normal to inspection and normal bowel sounds; abdomen not distended and no abdominal edema Percussion/Palpation: abdomen soft; abdomen nontender Musculoskeletal: no cyanosis or clubbing, extremities motor strength 5/5 Skin: no rashes, warm and dry Psychiatric: A+Ox3, euthymic affect Results & Data ([facility]) Vital Signs (Past 12 Hours) Vital Signs Temp Pulse Resp BP Pulse Ox 12/21/21 06:48 36.6 C 91 H 15 159/71 H 97 Laboratory Results Cardiac Enzymes 12/20/21 12/20/21 12/20/21 Range/Units 10:25 12:18 18:12 AST 26 (13-39) U/L Troponin I High Sens 104.2 H* 108.3 H* 360.2 H* D (0-20) pg/ml 12/21/21 12/21/21 Range/Units 00:27 05:29 AST 19 (13-39) U/L Troponin I High Sens 372.4 H* (0-20) pg/ml Coagulation 12/20/21 12/21/21 12/21/21 Range/Units 18:12 00:27 02:00 PT 12.1 H (9.0-12.0) Seconds APTT 26.3 40.1 H 26.4 (21.0-31.0) Seconds CBC 12/20/21 12/21/21 Range/Units 10:25 05:29 WBC 10.46 10.34 (4.8-10.8) K/uL RBC 4.96 4.56 L (4.7-6.1) M/uL Hgb 14.3 13.1 L (14.0-18.0) g/dL Hct 43.1 39.6 L (42-52) % Plt Count 219 222 (130-400) K/uL Neut # (Auto) 8.14 H (1.4-6.5) K/uL Lymph # (Auto) 0.86 L (1.2-3.4) K/uL [place] # (Auto) 0.60 H (0.11-0.59) K/uL Eos # (Auto) 0.74 H (0-0.5) K/uL Baso # (Auto) 0.01 (0-0.2) K/uL Comprehensive Metabolic Panel 12/20/21 12/21/21 Range/Units 10:25 05:29 Sodium 136 136 (136-145) mmol/L Potassium 3.7 4.3 (3.5-5.1) mmol/L Chloride 100 102 (98-107) mmol/L Carbon Dioxide 29 29 (21-32) mmol/L BUN 23 20 (6-23) mg/dl Creatinine 1.20 1.12 (0.6-1.4) mg/dl Glucose 162 H 106 H (70-99(Fasting)) mg/dl Calcium 9.0 8.6 (8.5-10.1) mg/dl AST 26 19 (13-39) U/L ALT 60 H 47 (7-52) U/L Alkaline Phosphatase 185 H 175 H (34-104) U/L Total Protein 6.9 6.0 (6.0-8.3) gm/dl Albumin 4.0 3.5 (3.4-5.0) gm/dl Intake and Output 12/20/21 12/21/21 12/21/21 22:59 06:59 14:59 Intake Total 153 / 1153 104.583 / 104.583 Balance 153 / 1153 104.583 / 104.583 Intake: IV 153 / 1153 104.583 / 104.583 Heparin Sodium/Dextrose 25,000 153 / 153 104.583 / 104.583 units In 500 ml @ 1,250 UNITS/ HR 25 mls/hr IV .Q20H [facility] Rx#: [id number] Other: Weight 107.2 kg 107.2 kg Weight Measurement Method Standing Scale Patient Weight 12/22/21 06:59 Weight 107.2 kg
[2021-12-21] MEDS ORDERED: METOPROLOL TARTRATE 25 MG TAB PO ONE (09:33)
[2021-12-21 10:19] LABS: Partial Thromboplastin Ratio 1.3; Partial Thromboplastin Time 35.6 Seconds (21.0-31.0)
--- NOTE | 2021-12-21 11:37 | Hospitalist Progress Note ---
Date of Service December 21, 2021 Assessment & Plan (1) Atrial flutter with rapid ventricular response: (2) Elevated troponin: Plan: Atrial flutter with rapid ventricular response Currently sinus rhythm Elevated troponins may be related to this. Echo report noted. Normal LV systolic function EF 60-65%. No valvular pathology. Mild to moderate circumferential pericardial effusion more pronounced posteriorly without hemodynamic compromise Telemetry monitoring Will follow Manager Mass recommendation Was started on sotalol Patient denied any history of hypertension, MN/CVA/ischemic vascular disease, diabetes. However, pressure measurement has been between 130s over 80s to 150/99 in the ER this admission. Some previous records from 2019 also suggested some blood pressure of 150s over 90s. Patient probably has history of hypertension. His [id number] score is likely 0-1 Considering all the above and elevated trop, he was started on hep drip on admission pending Cardiology eval (3) Elevated LFTs: Plan: ALT 60, alk phos is 185. These are mildly elevated. Review of CT abdomen pelvis from 12/18/2021 noted pericholecystic fluid with findings suggestive of possible cholecystitis. However, considering absence of GI symptoms, no leukocytosis, no fever, unremarkable gall bladder USS at this time; will only monitor LFTs and hold off treatment Monitor LFTs (4) Cough: Plan: Chest x-ray noted suspicion of small bilateral pleural effusion and PA and lateral radiographs recommended. Will get PA and lateral chest x-rays. Antitussives as needed (5) DVT prophylaxis: Plan: Heparin drip as noted above Admission and Anticipated Discharge Date Admission Date: December 20, 2021 Subjective Patient seen and examined Reports only mild cough Denies any shortness of breath, chest pain, dizziness, palpitations Denies any nausea, vomiting, abdominal pain, diarrhea constipation Denies dysuria, frequency, urgency Patient has been flipping from Aflutter to sinus rhythm since admission on tele Physical Exam Constitutional: + well hydrated; no acute distress Eyes: PERRL, conjunctivae normal, anicteric sclerae ENMT: external ear and nose normal, oropharynx normal Respiratory: normal respiratory effort, lungs clear to auscultation Cardiovascular: Rate/Rhythm: regular rate and regular rhythm S1 S2 Gastrointestinal (Abdomen): normal bowel sounds, soft, nontender, no hepatosplenomegaly Musculoskeletal: no cyanosis or clubbing, extremities motor strength 5/5 Neurologic: PERRL, EOMI, accommodation nl, no face palsy, no dysarthria Psychiatric: A+Ox3, euthymic affect Results & Data Results & Data ([facility]) Vital Signs (Past 12 Hours) Vital Signs Temp Pulse Resp BP Pulse Ox 12/21/21 06:48 36.6 C 91 H 15 159/71 H 97 Laboratory Results Abnormal lab results 12/20/21 12/20/21 12/20/21 Range/Units 10:25 12:18 18:12 RBC (4.7-6.1) M/uL Hgb (14.0-18.0) g/dL Hct (42-52) % PT 12.1 H (9.0-12.0) Seconds APTT (21.0-31.0) Seconds Glucose (70-99(Fasting)) mg/dl Hemoglobin A1c 6.2 H (4.5-5.6) % Alkaline Phosphatase (34-104) U/L Troponin I High Sens 108.3 H* (0-20) pg/ml 12/20/21 12/21/21 12/21/21 Range/Units 18:12 00:27 00:27 RBC (4.7-6.1) M/uL Hgb (14.0-18.0) g/dL Hct (42-52) % PT (9.0-12.0) Seconds APTT 40.1 H (21.0-31.0) Seconds Glucose (70-99(Fasting)) mg/dl Hemoglobin A1c (4.5-5.6) % Alkaline Phosphatase (34-104) U/L Troponin I High Sens 360.2 H* D 372.4 H* (0-20) pg/ml 12/21/21 12/21/21 12/21/21 Range/Units 05:29 05:29 09:29 RBC 4.56 L (4.7-6.1) M/uL Hgb 13.1 L (14.0-18.0) g/dL Hct 39.6 L (42-52) % PT (9.0-12.0) Seconds APTT 35.6 H (21.0-31.0) Seconds Glucose 106 H (70-99(Fasting)) mg/dl Hemoglobin A1c (4.5-5.6) % Alkaline Phosphatase 175 H (34-104) U/L Troponin I High Sens (0-20) pg/ml
[2021-12-21] MEDS: SOTALOL HCL 80 MG TAB PO SCH ×2 (11:38→20:26)
--- NOTE | 2021-12-21 11:45 | Electrocardiogram Report ---
Test Reason : Blood Pressure : / mmHG Vent. Rate : 082 BPM Atrial Rate : 082 BPM P-R Int : 168 ms QRS Dur : 088 ms QT Int : 368 ms P-R-T Axes : 051 090 043 degrees QTc Int : 429 ms Sinus rhythm with Premature atrial complexes Rightward axis Borderline ECG When compared with ECG of 20-DEC-2021 12:30, Premature atrial complexes are now Present Confirmed by Wiley Tapia ([id number]) on 12/21/2021 11:44:49 AM Referred By: REFERRED SELF Confirmed By:Riley Tapia
--- NOTE | 2021-12-21 15:23 | XRay Report ---
XR chest 2V PA/lateral CLINICAL HISTORY: Better assessment. Cough TECHNIQUE: 2 views of the chest were obtained. Comparison: Comparison is made to chest radiograph 12/20/2021 FINDINGS: No lines and tubes are seen. Cardiomegaly is noted. Faint bibasilar airspace opacities are seen. Smal l bilateral pleural effusions are seen. IMPRESSION: Small bilateral pleural effusions. Faint airspace opacities in the lower lobes may represent atelecta sis. Previously noted pulmonary edema has improved. ACT 112: Negative or not required by law. Electronically signed by: Jb Magdaleno M.D. 12/21/2021 3:22 PM
[2021-12-21] MEDS: HEPARIN SODIUM/DEXTROSE 25,000 UNITS/500 ML BAG IV SCH (17:34)
[2021-12-21 17:50] LABS: Partial Thromboplastin Ratio 1.7
[2021-12-21 17:51] LABS: Partial Thromboplastin Time 46.4 Seconds (21.0-31.0)
[2021-12-21] MEDS ORDERED: METOPROLOL TARTRATE 25 MG TAB PO SCH (21:00)
[2021-12-22 07:50] LABS: Partial Thromboplastin Ratio 1.6; Partial Thromboplastin Time 43.3 Seconds (21.0-31.0)
[2021-12-22 08:03] LABS: Albumin Globulin Ratio 1.4 (0.9-2); Albumin Level 3.4 gm/dl (3.4-5.0); BUN Creatinine Ratio 14.9 (10-20); Bilirubin,Total 0.5 mg/dl (0.2-1.0); Calcium 8.2 mg/dl (8.5-10.1); Creatinine Clr Calc Pharmacy 91.7 ml/min; Est GFR (African American) 82.9 ml/min; Est GFR (Non-African American) 71.5 ml/min; Globulin 2.5 gm/dl (2.5-4.0); Magnesium 2.3 mg/dl (1.7-2.4); Potassium 4.3 mmol/L (3.5-5.1); Total Protein 5.9 gm/dl (6.0-8.3)
--- NOTE | 2021-12-22 08:05 | Cardiology Progress Note ---
Date of Service December 22, 2021 Assessment & Plan (1) Atrial flutter with rapid ventricular response: (2) Elevated troponin: (3) Hypertension: (4) Pericardial effusion: Plan: 55-year-old male with new onset atrial flutter. Has been transitioning between atrial flutter and normal sinus rhythm throughout his hospital stay. Patient asymptomatic. Found to have an elevated troponin, chest pain-free. Echocardiogram showed a preserved LVEF of 60 to 65% without WMA. Mild to moderate circumferential pericardial effusion noted. Elevated troponin likely due to new onset atrial flutter with rapid ventricular rates. 1. Continue sotalol load with 80 mg twice daily 2. Continue to monitor electrolytes and replete for a potassium goal of 4.0 and mag goal of 2.0 3. This morning's EKG stable with stable QTC of 473 ms. Repeat EKG in the am to reassess QTC. 4. Continue IV heparin infusion x48 hours-discussed transition of to DOAC prior to discharge. Patient in agreement. 5. Consideration for outpatient stress testing to rule out ischemic cause of new onset atrial flutter 6. In terms of the pericardial effusion- patient is currently asymptomatic. He did recently have a viral illness. We will refrain from treatment at this time. Tick borne illness panel pending. Case discussed with Dr. Grijalva, will follow. Admission and Anticipated Discharge Date Admission Date: December 20, 2021 Supervising Physician Co-Signing Physician Notes Patient seen and examined, chart, medications telemetry reviewed. Full assessment as well outlined above. Patient feels well only transient A. fib flutter last evening and none since this morning. Tolerating sotalol well with stable EKG QTc Would transition to DOAC as above Subjective 55-year-old male with no known medical history. Per last PCP note 12/2021 has not seen a physician for over 15 years. Initially presented to urgent care to be evaluated for respiratory symptoms. Noted a cough x3-5 days, abdominal discomfort, and some chest tightness/heartburn. EKG obtained showing atrial flutter, 130 bpm. Did take agrj-pdu-atzdkvy cough medicine for a few days (Delsym and generic cough and cold med) for URI symptoms Patient was started on a heparin drip and metoprolol tartrate 12.5 mg twice daily was added. Metoprolol dc'd in favor of Sotalol 80 mg BID 12/21. EKG: NSR 77 bpm, QTC 473 ms Tele: Primarily sinus rhythm, heart rates in the 60s to 70s. Two episodes of atrial flutter at 9:15 PM and 5:30 AM Chart reviewed. Telemetry reviewed patient seen and examined at bedside. Upon entrance into the room patient was resting comfortably in bed without complaint. Denies any chest pain, shortness of breath, or palpitations. No dizziness or syncope. Vital signs have remained stable. Telemetry and EKG stable. Review of Systems Review of Systems: All systems reviewed & are unremarkable except as noted in HPI & below Physical Exam Constitutional: WD/WN, vitals as above + acute distress Eyes: PERRL, conjunctivae normal, anicteric sclerae Neck: normal visual inspection and trachea midline Respiratory: normal respiratory effort, + respiratory distress and + cough; no labored breathing Auscultation: lungs clear to auscultation bilaterally Cardiovascular: Rate/Rhythm: regular rate and regular rhythm (occasional irregularity and tachycardia ) Heart Sounds: normal S1 and normal S2; no murmur Vessels: no JVD Extremities: normal capillary refill Gastrointestinal (Abdomen): Inspection/Auscultation: abdomen normal to inspection and normal bowel sounds; abdomen not distended and no abdominal edema Percussion/Palpation: abdomen soft; abdomen nontender Musculoskeletal: no cyanosis or clubbing, extremities motor strength 5/5 Skin: no rashes, warm and dry Psychiatric: A+Ox3, euthymic affect Results & Data ([facility]) Vital Signs (Past 12 Hours) Vital Signs Temp Pulse Pulse Resp BP Pulse Ox 12/22/21 04:01 36.7 C 80 18 122/70 92 12/21/21 23:31 37.0 C 76 18 122/68 96 12/21/21 23:05 73 12/21/21 20:12 36.7 C 82 18 125/74 93 Laboratory Results Cardiac Enzymes 12/22/21 12/22/21 Range/Units 06:58 08:02 AST 12 L 13 (13-39) U/L Coagulation 12/21/21 12/22/21 Range/Units 16:43 06:58 APTT 46.4 H* 43.3 H (21.0-31.0) Seconds CBC 12/22/21 Range/Units 08:02 WBC 9.71 (4.8-10.8) K/uL RBC 4.42 L (4.7-6.1) M/uL Hgb 12.9 L (14.0-18.0) g/dL Hct 38.5 L (42-52) % Plt Count 223 (130-400) K/uL Comprehensive Metabolic Panel 12/22/21 12/22/21 Range/Units 06:58 08:02 Sodium 136 136 (136-145) mmol/L Potassium 4.3 3.8 (3.5-5.1) mmol/L Chloride 102 103 (98-107) mmol/L Carbon Dioxide 28 27 (21-32) mmol/L BUN 17 17 (6-23) mg/dl Creatinine 1.14 1.10 (0.6-1.4) mg/dl Glucose 102 H 142 H (70-99(Fasting)) mg/dl Calcium 8.2 L 8.3 L (8.5-10.1) mg/dl AST 12 L 13 (13-39) U/L ALT 33 33 (7-52) U/L Alkaline Phosphatase 156 H 156 H (34-104) U/L Total Protein 5.9 L 6.1 (6.0-8.3) gm/dl Albumin 3.4 3.4 (3.4-5.0) gm/dl Intake and Output 12/21/21 12/22/21 12/22/21 22:59 06:59 14:59 Intake Total 833.667 / 1535.333 520 / 1535.333 451.667 / 451.667 Balance 833.667 / 1535.333 520 / 1535.333 451.667 / 451.667 Intake: IV 213.667 / 395.333 451.667 / 451.667 Heparin Sodium/Dextrose 25,000 213.667 / 395.333 451.667 / 451.667 units In 500 ml @ 1,450 UNITS/ HR 29 mls/hr IV .[id number] [facility] Rx #:[id number] Oral 620 / 1140 520 / 1140 Other: Weight 107.6 kg Weight Measurement Method Built in [facility]
[2021-12-22] MEDS: SOTALOL HCL 80 MG TAB PO SCH ×2 (08:13→20:48)
[2021-12-22 08:41] LABS: Mean Platelet Volume 9.6 fL (7.4-10.4); Platelet Count 223 K/uL (130-400)
[2021-12-22 08:57] LABS: Albumin Globulin Ratio 1.3 (0.9-2); Albumin Level 3.4 gm/dl (3.4-5.0); BUN Creatinine Ratio 15.5 (10-20); Bilirubin,Total 0.6 mg/dl (0.2-1.0); C Reactive Protein 6.78 mg/dl (0-0.5); Calcium 8.3 mg/dl (8.5-10.1); Est GFR (African American) 86.5 ml/min; Est GFR (Non-African American) 74.6 ml/min; Globulin 2.7 gm/dl (2.5-4.0); Potassium 3.8 mmol/L (3.5-5.1); Total Protein 6.1 gm/dl (6.0-8.3)
[2021-12-22 09:12] LABS: Hematocrit (blood only) 38.5 % (42-52); Hemoglobin 12.9 g/dL (14.0-18.0); Mean Corpuscular Hemoglobin 29.2 pg (25-34); Mean Corpuscular Hgb Conc 33.5 g/dL (32-36); Mean Corpuscular Volume 87.1 fL (80-100); RDW Coefficient of Variation 13.4 % (11.5-14.5); RDW Standard Deviation 42.9 fL (36.4-46.3); Red Blood Count 4.42 M/uL (4.7-6.1); White Blood Count 9.71 K/uL (4.8-10.8)
[2021-12-22 09:14] LABS: Procalcitonin 0.06 ng/ml (0-0.5)
[2021-12-22 09:15] LABS: Basophils # (manual) 0.04 K/uL (0-0.2); Basophils % (manual) 0.4 %; Eosinophils # (manual) 1.58 K/uL (0-0.5); Eosinophils % (manual) 16.3 %; Lymphocytes % (manual) 9.3 %; Monocytes % (manual) 3.1 %; Myelocytes # (manual) 0.09 K/uL (0-0); Myelocytes % (manual) 0.9 %; RBC Morphology Unremarkable
[2021-12-22 09:20] LABS: Lyme Ab IgG w/WB Rflx Negative (Negative); Lyme Ab IgM w/WB Rflx Negative (Negative)
[2021-12-22] MEDS: HEPARIN SODIUM/DEXTROSE 25,000 UNITS/500 ML BAG IV SCH ×3 (11:03→13:26)
--- NOTE | 2021-12-22 12:46 | Hospitalist Progress Note ---
Date of Service December 22, 2021 Assessment & Plan (1) Atrial flutter with rapid ventricular response: (2) Elevated troponin: Plan: Atrial flutter with rapid ventricular response Currently sinus rhythm Elevated troponins may be related to this. Likely demand ischemia Echo report noted. Normal LV systolic function EF 60-65%. No valvular pathology. Mild to moderate circumferential pericardial effusion more pronounced posteriorly without hemodynamic compromise Telemetry monitoring [employer] recommendations noted Was started on sotalol. Monitor electrolytes, QTc on EKG Currently on heparin drip. Plan to switch to DOAC in AM (3) Elevated LFTs: Plan: ALT 60, alk phos is 185 on admission. These are mildly elevated. Review of CT abdomen pelvis from 12/18/2021 noted pericholecystic fluid with findings suggestive of possible cholecystitis. However, considering absence of GI symptoms, no leukocytosis, no fever, unremarkable gall bladder USS at this time; will only monitor LFTs and hold off treatment ALT is normal now Alk P 156 today (4) Cough: Plan: Chest x-ray noted suspicion of small bilateral pleural effusion and PA and lateral radiographs recommended. PA and lateral chest x-rays noted small bilateral effusion and atelectasis Improved cough (5) DVT prophylaxis: Plan: Heparin drip as noted above Admission and Anticipated Discharge Date Admission Date: December 20, 2021 Subjective Patient seen and examined Denies cough today Denies any shortness of breath, chest pain, dizziness, palpitations Denies any nausea, vomiting, abdominal pain, diarrhea constipation Denies dysuria, frequency, urgency Was started on sotalol yesterday by Cardiology, currently on sinus. Converted to sinus overnight per tele Physical Exam Constitutional: + well hydrated; no acute distress Eyes: PERRL, conjunctivae normal, anicteric sclerae ENMT: external ear and nose normal, oropharynx normal Respiratory: normal respiratory effort, lungs clear to auscultation Cardiovascular: Rate/Rhythm: regular rate and regular rhythm S1 S2 Gastrointestinal (Abdomen): normal bowel sounds, soft, nontender, no hepatosplenomegaly Musculoskeletal: no cyanosis or clubbing, extremities motor strength 5/5 Neurologic: PERRL, EOMI, accommodation nl, no face palsy, no dysarthria Psychiatric: A+Ox3, euthymic affect Results & Data Results & Data ([facility]) Vital Signs (Past 12 Hours) Vital Signs Temp Pulse Pulse Resp BP Pulse Ox 12/22/21 12:06 36.7 C 68 18 110/66 97 12/22/21 08:20 36.6 C 77 18 122/68 96 12/22/21 08:00 75 12/22/21 04:01 36.7 C 80 18 122/70 92 Laboratory Results Abnormal lab results 12/21/21 12/22/21 12/22/21 Range/Units 16:43 06:58 06:58 RBC (4.7-6.1) M/uL Hgb (14.0-18.0) g/dL Hct (42-52) % Neutrophils # (Manual) (1.4-6.5) K/uL Total Absolute Neuts (1.4-6.5) K/uL Lymphocytes # (Manual) (1.2-3.4) K/uL Total Abs Lymphocytes (1.2-3.4) K/uL Eosinophils # (Manual) (0-0.5) K/uL Myelocytes # (Manual) (0-0) K/uL APTT 46.4 H* 43.3 H (21.0-31.0) Seconds Glucose 102 H (70-99(Fasting)) mg/dl Calcium 8.2 L (8.5-10.1) mg/dl AST 12 L (13-39) U/L Alkaline Phosphatase 156 H (34-104) U/L C-Reactive Protein (0-0.5) mg/dl Total Protein 5.9 L (6.0-8.3) gm/dl 12/22/21 12/22/21 Range/Units 08:02 08:02 RBC 4.42 L (4.7-6.1) M/uL Hgb 12.9 L (14.0-18.0) g/dL Hct 38.5 L (42-52) % Neutrophils # (Manual) 6.80 H (1.4-6.5) K/uL Total Absolute Neuts 6.80 H (1.4-6.5) K/uL Lymphocytes # (Manual) 0.90 L (1.2-3.4) K/uL Total Abs Lymphocytes 0.90 L (1.2-3.4) K/uL Eosinophils # (Manual) 1.58 H (0-0.5) K/uL Myelocytes # (Manual) 0.09 H (0-0) K/uL APTT (21.0-31.0) Seconds Glucose 142 H (70-99(Fasting)) mg/dl Calcium 8.3 L (8.5-10.1) mg/dl AST (13-39) U/L Alkaline Phosphatase 156 H (34-104) U/L C-Reactive Protein 6.78 H (0-0.5) mg/dl Total Protein (6.0-8.3) gm/dl
[2021-12-22 18:05] LABS: Partial Thromboplastin Ratio 1.6; Partial Thromboplastin Time 43.2 Seconds (21.0-31.0)
--- NOTE | 2021-12-22 19:11 | Electrocardiogram Report ---
Test Reason : Blood Pressure : / mmHG Vent. Rate : 077 BPM Atrial Rate : 077 BPM P-R Int : 160 ms QRS Dur : 098 ms QT Int : 418 ms P-R-T Axes : 063 092 044 degrees QTc Int : 473 ms Normal sinus rhythm Possible Left atrial enlargement Rightward axis Borderline ECG When compared with ECG of 21-DEC-2021 09:28, Premature atrial complexes are no longer Present Confirmed by Wiley Tapia ([id number]) on 12/22/2021 7:11:23 PM Referred By: REFERRED SELF Confirmed By:Riley Tapia
[2021-12-23] MEDS: HEPARIN SODIUM/DEXTROSE 25,000 UNITS/500 ML BAG IV SCH ×2 (02:23→07:05)
[2021-12-23 03:13] LABS: Partial Thromboplastin Ratio 1.7
[2021-12-23 03:15] LABS: Partial Thromboplastin Time 47.4 Seconds (21.0-31.0)
[2021-12-23 07:20] LABS: Hematocrit (blood only) 37.6 % (42-52); Hemoglobin 12.5 g/dL (14.0-18.0); Mean Corpuscular Hemoglobin 29.1 pg (25-34); Mean Corpuscular Hgb Conc 33.2 g/dL (32-36); Mean Corpuscular Volume 87.6 fL (80-100); Mean Platelet Volume 9.4 fL (7.4-10.4); Platelet Count 210 K/uL (130-400); RDW Coefficient of Variation 13.7 % (11.5-14.5); RDW Standard Deviation 43.6 fL (36.4-46.3); Red Blood Count 4.29 M/uL (4.7-6.1); White Blood Count 8.74 K/uL (4.8-10.8)
--- NOTE | 2021-12-23 07:42 | Cardiology Progress Note ---
Date of Service December 23, 2021 Assessment & Plan (1) Atrial flutter with rapid ventricular response: (2) Elevated troponin: (3) Hypertension: (4) Pericardial effusion: Plan: 55-year-old male with new onset atrial flutter. Has been transitioning between atrial flutter and normal sinus rhythm throughout his hospital stay. Sotalol started 12/21. No flutter seen over 24 hours. This morning's EKG stable with stable QTC of 473 ms. Patient asymptomatic. Found to have an elevated troponin, chest pain-free. Echocardiogram showed a preserved LVEF of 60 to 65% without WMA. Mild to moderate circumferential pericardial effusion noted. Elevated troponin likely due to new onset atrial flutter with rapid ventricular rates. 1. Continue sotalol load with 80 mg twice daily, dose 6 will be given at 5pm today. 2. EKG to be done 1 hour after administration of the Sotalol dose, 6pm. 3. As long as EKG remains stable will be okay for discharge. Nursing aware of plan. 4. IV heparin discontinued this morning and patient was transitioned to Eliquis 5 mg twice daily. 5. In terms of the pericardial effusion- patient is currently asymptomatic. He did recently have a viral illness. We will refrain from treatment at this time. Full tick borne illness panel pending, Lyme negative. Case discussed with Dr. Grijalva, will follow. Admission and Anticipated Discharge Date Admission Date: December 20, 2021 Supervising Physician Co-Signing Physician Notes Patient seen and examined, chart, medications telemetry reviewed. Full assessment as well outlined above. No further atrial fibrillation or flutter on telemetry. No QTC prolongation on EKG. Will check EKG after p.m. dose of sotalol today and if no significant change will be discharged home on current dosing of sotalol. Cardiology follow-up scheduled on 01/08/2022 Subjective 55-year-old male with no known medical history. Per last PCP note 12/2021 has not seen a physician for over 15 years. Initially presented to urgent care to be evaluated for respiratory symptoms. Noted a cough x3-5 days, abdominal discomfort, and some chest tightness/heartburn. EKG obtained showing atrial flutter, 130 bpm. Did take atpa-ulb-gfucsnh cough medicine for a few days (Delsym and generic cough and cold med) for URI symptoms Patient was started on a heparin drip and metoprolol tartrate 12.5 mg twice daily was added. Metoprolol dc'd in favor of Sotalol 80 mg BID 12/21. EKG: NSR 67 bpm, QTC 467 ms Tele: Sinus rhythm, heart rates in the 60s to 70s.No episodes of atrial fib/flutter x24 hours Chart and telemetry reviewed. EKG/QTC stable. Patient seen and examined at bedside. Upon entrance into the room patient was resting comfortably in bed without complaint. He is eager to get home. Denies any chest pain, shortness of breath, or palpitations. No dizziness or syncope. Vital signs have remained stable. Physical Exam Constitutional: WD/WN, vitals as above + acute distress Eyes: PERRL, conjunctivae normal, anicteric sclerae Neck: normal visual inspection and trachea midline Respiratory: normal respiratory effort, + respiratory distress and + cough; no labored breathing Auscultation: lungs clear to auscultation bilaterally Cardiovascular: Rate/Rhythm: regular rate and regular rhythm (occasional irregularity and tachycardia ) Heart Sounds: normal S1 and normal S2; no murmur Vessels: no JVD Extremities: normal capillary refill Gastrointestinal (Abdomen): Inspection/Auscultation: abdomen normal to inspection and normal bowel sounds; abdomen not distended and no abdominal edema Percussion/Palpation: abdomen soft; abdomen nontender Musculoskeletal: no cyanosis or clubbing, extremities motor strength 5/5 Skin: no rashes, warm and dry Psychiatric: A+Ox3, euthymic affect Results & Data ([facility]) Vital Signs (Past 12 Hours) Vital Signs Temp Pulse Pulse Resp BP Pulse Ox 12/23/21 07:18 36.8 C 66 16 126/70 97 12/23/21 03:00 36.9 C 65 18 131/68 93 12/23/21 01:45 65 12/22/21 23:00 36.6 C 68 18 155/91 H 95 Laboratory Results Coagulation 12/22/21 12/23/21 12/23/21 Range/Units 17:38 01:58 06:31 APTT 43.2 H 47.4 H* 52.5 H* (21.0-31.0) Seconds CBC 12/23/21 Range/Units 06:31 WBC 8.74 (4.8-10.8) K/uL RBC 4.29 L (4.7-6.1) M/uL Hgb 12.5 L (14.0-18.0) g/dL Hct 37.6 L (42-52) % Plt Count 210 (130-400) K/uL Comprehensive Metabolic Panel 12/23/21 Range/Units 06:31 Sodium 139 (136-145) mmol/L Potassium 4.3 (3.5-5.1) mmol/L Chloride 103 (98-107) mmol/L Carbon Dioxide 31 (21-32) mmol/L BUN 14 (6-23) mg/dl Creatinine 1.11 (0.6-1.4) mg/dl Glucose 100 H (70-99(Fasting)) mg/dl Calcium 8.6 (8.5-10.1) mg/dl Intake and Output 12/22/21 12/23/21 12/23/21 22:59 06:59 14:59 Intake Total 652.617 / 1463.534 359.25 / 1463.534 211.2 / 211.2 Balance 652.617 / 1463.534 359.25 / 1463.534 211.2 / 211.2 Intake: IV 252.617 / 943.534 239.25 / 943.534 211.2 / 211.2 Heparin Sodium/Dextrose 25,000 252.617 / 943.534 239.25 / 943.534 211.2 / 211.2 units In 500 ml @ 1,650 UNITS/ HR 33 mls/hr IV .[id number] [facility] Rx #:[id number] Oral 400 / 520 120 / 520 Other: # Unmeasured Voids 2 Weight 106.4 kg Weight Measurement Method Built in [facility]
[2021-12-23 07:45] LABS: Partial Thromboplastin Ratio 1.9
[2021-12-23 07:48] LABS: BUN Creatinine Ratio 12.6 (10-20); Calcium 8.6 mg/dl (8.5-10.1); Creatinine Clr Calc Pharmacy 93.7 ml/min; Est GFR (African American) 85.6 ml/min; Est GFR (Non-African American) 73.8 ml/min; Magnesium 2.5 mg/dl (1.7-2.4); Potassium 4.3 mmol/L (3.5-5.1)
[2021-12-23 07:58] LABS: Partial Thromboplastin Time 52.5 Seconds (21.0-31.0)
[2021-12-23] MEDS: SOTALOL HCL 80 MG TAB PO SCH (08:27)
[2021-12-23] MEDS ORDERED: APIXABAN 5 MG TABLET PO SCH (09:00)
--- NOTE | 2021-12-23 11:58 | Electrocardiogram Report ---
Test Reason : Blood Pressure : / mmHG Vent. Rate : 067 BPM Atrial Rate : 067 BPM P-R Int : 180 ms QRS Dur : 088 ms QT Int : 442 ms P-R-T Axes : 052 087 061 degrees QTc Int : 467 ms Normal sinus rhythm Normal ECG When compared with ECG of 22-DEC-2021 04:29, No significant change was found Confirmed by Wiley Tapia ([id number]) on 12/23/2021 11:58:19 AM Referred By: REFERRED SELF Confirmed By:Riley Tapia
[2021-12-23] MEDS ORDERED: SOTALOL HCL 80 MG TAB PO ONE (17:00)
--- NOTE | 2021-12-24 18:18 | Electrocardiogram Report ---
Test Reason : Blood Pressure : / mmHG Vent. Rate : 068 BPM Atrial Rate : 068 BPM P-R Int : 172 ms QRS Dur : 094 ms QT Int : 438 ms P-R-T Axes : 042 079 052 degrees QTc Int : 465 ms Normal sinus rhythm Normal ECG When compared with ECG of 23-DEC-2021 07:13, No significant change was found Confirmed by Wiley Tapia ([id number]) on 12/24/2021 6:18:31 PM Referred By: REFERRED SELF Confirmed By:Riley Tapia
== END 2021-12-23 18:10 | disposition home or self-care (01) | DRG 309 ==
LOC: ED 10:13 → SUATTDRO 15:02 → EDINP 15:02 → 2E 12-21 06:35

== ENCOUNTER 2024-01-17 18:35 | Observation (INO) ==
[2024-01-17] MEDS: fentaNYL citrate PF 100 MCG/2 ML VIAL IV STA (19:21)
[2024-01-17 19:37] LABS: Basophils # (auto) 0.05 K/uL (0.00-0.20); Basophils % (auto) 0.7 %; Eosinophils # (auto) 0.22 K/uL (0.00-0.50); Eosinophils % (auto) 3.2 %; Hematocrit (blood only) 43.6 % (42.0-52.0); Hemoglobin 14.2 g/dl (14.0-18.0); Immature Granulocytes # (auto) 0.09 K/uL (0.01-0.20); Immature Granulocytes % (auto) 1.3 %; Lymphocytes # (auto) 1.64 K/uL (1.20-3.40); Lymphocytes % (auto) 23.8 %; Mean Corpuscular Hemoglobin 28.7 pg (25.0-34.0); Mean Corpuscular Hgb Conc 32.6 g/dL (32.0-36.0); Mean Corpuscular Volume 88.1 fL (80.0-100.0); Mean Platelet Volume 9.9 fL (9.4-12.4); Monocytes # (auto) 0.48 K/uL (0.11-0.59); Neutrophils # (auto) 4.41 K/uL (1.40-6.50); Platelet Count 169 K/uL (130-400); RDW Coefficient of Variation 13.9 % (11.5-14.5); RDW Standard Deviation 44.9 fL (36.4-46.3); Red Blood Count 4.95 M/uL (4.70-6.10); White Blood Count 6.89 K/ul (4.8-10.8)
[2024-01-17] MEDS: SODIUM CHLORIDE 0.9% 500 ML IV ONE (19:47)
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
[2024-01-17] MEDS: HYDROmorphone INJ 0.5 MG/0.5 ML SYR IV STA (19:49)
[2024-01-17] MEDS: ONDANSETRON INJ 2 MG/ML 2 ML VIAL IV STA (19:49)
[2024-01-17 19:53] LABS: Albumin Globulin Ratio 1.6 (0.9-2); Albumin Level 4.7 gm/dl (3.4-5.0); BUN Creatinine Ratio 17.2 (10-20); Bilirubin,Total 0.4 mg/dl (0.2-1.0); Calcium 9.6 mg/dl (8.6-10.3); Creatinine Clr Calc Pharmacy 63.5 ml/min; Est GFR (African American) 52.7 ml/min; Est GFR (Non-African American) 45.4 ml/min; Globulin 2.9 gm/dl (2.5-4.0); Potassium 4.2 mmol/L (3.5-5.1); Total Protein 7.6 gm/dl (6.0-8.3)
[2024-01-17 20:04] LABS: Prothrombin Time 10.5 Seconds (9.0-12.0)
[2024-01-17] MEDS: SODIUM CHLORIDE 0.9% 1,000 ML IV ONE (20:16)
[2024-01-17] MEDS: OPTIRAY 320 100ml IV ONE (20:18)
[2024-01-17] MEDS: HYDROmorphone INJ 1 MG/ML SYRINGE IV STA (20:44)
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
[2024-01-18] MEDS ORDERED: POLYETHYLENE (MIRALAX) 17 GM PACK PO PRN (03:37)
[2024-01-18] MEDS: HYDROmorphone INJ 0.5 MG/0.5 ML SYR IV PRN (04:01)
[2024-01-18] MEDS: SOTALOL HCL 80 MG TAB PO SCH (04:46)
[2024-01-18] MEDS: SODIUM CHLORIDE 0.9% 1,000 ML IV SCH (04:46)
[2024-01-18] MEDS: HEPARIN SOD 5,000 UNIT/0.5 ML VIAL SQ SCH (04:57)
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
[2024-01-18] MEDS: oxyCODONE HCL IR 5 MG TAB (IMMEDIATE RELEASE) PO PRN (08:10)
[2024-01-18] MEDS: ACETAMINOPHEN 325 MG TAB PO PRN (08:10)
[2024-01-18 08:21] LABS: Basophils # (auto) 0.03 K/uL (0.00-0.20); Basophils % (auto) 0.4 %; Eosinophils # (auto) 0.11 K/uL (0.00-0.50); Eosinophils % (auto) 1.4 %; Hematocrit (blood only) 37.8 % (42.0-52.0); Hemoglobin 12.3 g/dl (14.0-18.0); Immature Granulocytes # (auto) 0.05 K/uL (0.01-0.20); Immature Granulocytes % (auto) 0.6 %; Lymphocytes # (auto) 0.95 K/uL (1.20-3.40); Lymphocytes % (auto) 12.1 %; Mean Corpuscular Hemoglobin 28.9 pg (25.0-34.0); Mean Corpuscular Hgb Conc 32.5 g/dL (32.0-36.0); Mean Corpuscular Volume 88.7 fL (80.0-100.0); Mean Platelet Volume 9.9 fL (9.4-12.4); Monocytes # (auto) 0.71 K/uL (0.11-0.59); Monocytes % (auto) 9.1 %; Neutrophils # (auto) 5.99 K/uL (1.40-6.50); Neutrophils % (auto) 76.4 %; Platelet Count 134 K/uL (130-400); RDW Standard Deviation 45.1 fL (36.4-46.3); Red Blood Count 4.26 M/uL (4.70-6.10); White Blood Count 7.84 K/ul (4.8-10.8)
[2024-01-18 08:38] LABS: BUN Creatinine Ratio 27.2 (10-20); Calcium 8.3 mg/dl (8.6-10.3); Est GFR (African American) 91.7 ml/min; Est GFR (Non-African American) 79.1 ml/min; Potassium 4.4 mmol/L (3.5-5.1)
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
--- NOTE | 2024-01-18 12:47 | Electrocardiogram Report ---
Test Reason : Blood Pressure : / mmHG Vent. Rate : 066 BPM Atrial Rate : 066 BPM P-R Int : 176 ms QRS Dur : 092 ms QT Int : 416 ms P-R-T Axes : 059 071 052 degrees QTc Int : 436 ms Normal sinus rhythm Normal ECG When compared with ECG of 23-DEC-2021 17:58, No significant change was found Confirmed by Wiley Tapia ([id number]) on 01/18/2024 12:47:06 PM Referred By: REFERRED SELF Confirmed By:Riley Tapia
--- OUTSIDE RECORDS SUMMARY | 2024-01-18 14:30 | External Medical Summary | Summary of Care ---
Author Name Unknown Organization [facility] Address [address] [place] [address] Phone [phone] Care Team Providers Care Maintenance Plumber Name Role Phone Stalin Quinteros DO Primary Care Provider [phone] Reason for Visit * Reason Comments Follow Up Encounter Details Date Type Department Care Team ([facility] st Contact Info) Description 10/17/2023 3:00 PM EDT Office Visit Cardiology, [facility] [address] [facility] [place] [address] Bhumika Martínez PA-C [address] [facility] [place] [address] H/O atrial flutter* Allergies No known active allergiesdocumented as of this encounter (statuses as of 10/17/2023) Medications Medication Sig Dispensed Refills Start Date End Date Status Sotalol HCl 80 MG Oral Tablet (Betapace) Take 1 Tablet by mouth in the morning and 1 Tablet before bedtime. 180 Tablet 2 05/25/2023 Active documented as of this encounter (statuses as of 10/17/2023) Active Problems Problem Noted Date Diagnosed Date Atrial flutter with rapid ventricular response 0 07/14/2022 documented as of this encounter (statuses as of 10/17/2023) Immunizations Name Administration Dates Next Due Seasonal Influenza Vac, Quad , Cell culture, with Preserve, 6 mon and above, (Flucelvax) 05/15/2023 Seasonal Influenza Virus Vac cine, Unspecified Formulation 06/10/2023,06/09/2022 Seasonal Influenza, Quadrivalent, No Preserve, I M 04/23/2017 TDAP (age 10 and older)(Boostrix) 08/03/2023 documented as of this encounter Social History Tobacco Use Types Packs/Day Years Used Date Smoking Tobacco: Never Smokeless Tobacco: Never Tobacco Cessation:Counseling Given: Not Answered Alcohol Use Standard Drinks/Week Comments Yes 1 (1 standard drink = 0.6 oz pur e alcohol) Sex and Gender Information Value Date Recorded Sex Assigned at Not on file Gender Identity Not on file Sexual Orientation Not on file Job Start Date Occupation Industry Not on file Not on file Not on file documented as of this encounter Last Filed Vital Signs Vital Sign Reading Time Taken Comments Blood Pressure 126/64 10/17/2023 3:03 PM EDT Pulse 64 10/17/2023 3:03 PM EDT Temperature - - Respiratory Rate 18 10/17/2023 3:03 PM EDT Oxygen Saturation - - Inhaled Oxygen Concentration - - Weight 109.3 kg (241 lb) 10/17/2023 3:03 PM EDT Height - - Body Mass Index 32.69 08/03/2023 8:11 AM EST documented in this encounter Progress Notes * Bhumika Martínez PA-C - 10/17/2023 3:13 PM EDT 10/17/2023 Cardiology Follow Up Past Medical History: Paroxysmal atrial flutter HPI: Gatito Bruner is a 57 year old male who presents for cardiology follow up. Presents today feeling well. No acute cardiac complaints. Denies chest pain, palpitations, shortness of breath, edema, PND, orthopnea, lightheadedness, syncope. On sotalol, compliant. 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 No exertional symptoms. REVIEW OF SYSTEMS: See HPI for pertinent positives. All others negative other than those noted in the HPI. CONSTITUTIONAL: No change in weight, No weakness, No fatigue and No fevers, No sweats or chills. PULMONARY: No cough, sputum, or hemoptysis, No wheezing, No shortness of breath and No recent change in breathing. CARDIOVASCULAR: No chest pain, No dyspnea on exertion, No edema, No palpitations and No syncope. GASTROINTESTINAL: No abdominal pain, No change in bowel habits, No significant heartburn, No nausea, No vomiting, No diarrhea, No constipation, No blood in stools or black tarry stools. No dysphagia. HEMATOLOGIC: No abnormal bleeding and No bruising. NEUROLOGICAL: Normal balance, No headaches and No weakness. Review of patient's allergies indicates: No Known Allergies Current Outpatient Medications Medication Sig Dispense Refill Sotalol HCl 80 MG Oral Tablet (Betapace) Take 1 Tablet by mouth in the morning and 1 Tablet before bedtime. 180 Tablet 2 No current facility-administered medications for this visit. Past Medical History: Diagnosis Date No known problems No family history on file. 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 with 2 kids OBJECTIVE/PHYSICAL EXAMINATION: BP 126/64 (BP Site: Left Arm, BP Position: Sitting, BP Cuff Size: Large) | Pulse 64 | Resp 18 | Wt 109.3 kg (241 lb) | BMI 32.69 kg/m | BSA 2.36 m General: No acute distress. A+Ox3. HEENT: Normocephalic. Atraumatic. PERRL. EOMI. Conjunctiva and sclera clear. NECK: No carotid bruits. No JVD. Carotid upstrokes are brisk. Heart: RRR. S1 and S2 noted. No murmur. No rubs or gallops. PMI non displaced. Lungs: Clear to auscultation. No wheezes. No rhonchi. No rales. Abdomen: Normal bowel sounds. Soft. Nontender. No masses or organomegaly. No abdominal bruits. Extremities: No edema. No clubbing or cyanosis. Pulses: radial=2/4, posterior tibial=2/4, dorsalis pedis = 2/4. NEURO: No focal deficits. PSYCH: Appropriate affect and insight. DATA Labs & Imaging Reviewed Below: EKG 10/17/23 Sinus bradycardia, 53 bpm EKG 01/08/22 Sinus bradycardia, 53 bpm ASSESSMENT/PLAN: 57 year old male 1. H/O atrial flutter - feeling well from cardiac standpoint, denies palpitations - normal rhythm on exam - continue sotalol 80 mg twice daily - recommend regular aerobic exercise DISPOSITION: Follow up 1 year or sooner if symptoms worsen/fail to improve. All questions were answered to the patients satisfaction. Patient advised to report to ED with any and all emergencies. The patient agrees to the above plan and will call with additional questions or concerns. Bhumika Martínez PA-C Cardiology, [address] [place] [address] I spent a total of 30 minutes on the date of service in preparation, delivery, and documentation ofthe care provided to Gatito Bruner excluding any time spent in the performance of separately billed services. This chart was completed in part utilizing [employer] Speech Voice Recognition Software. Grammatical errors, random word insertions, pronoun errors, and incomplete sentences are an occasional consequence of this system due to software limitations, ambient noise, and hardware issues. Any formal questions or concerns about the content, text, or information contained within the body of this dictation should be directly addressed to the provider for clarification. documented in this encounter Nursing Notes * Karla Oliva CMA - 10/17/2023 3:01 PM EDT Examination Room: 3 Name: Gatito Bruner Date of : (1965). Reason for Visit: 1 yr f/u, previous [facility] patient Interim Hospitalization(s): none Problems/Concerns: denies Chest Pain/SOB: denies [facility] Discussed: Not applicable [facility] is a way you can talk to your provider online through e-mail. Would you like to sign up? I can activate it for you? DECLINES Patient was instructed to not get up on the exam table until directed and assisted by their provider; patient is to remain seated in the chair/ wheelchair/ exam table for fall prevention and safety reasons. Patient is aware to have assistance to step down off exam table with personnel. Patient voiced full comprehension of instructions. documented in this encounter Plan of Treatment Upcoming Encounters Date Type Department Care Team (Late st Contact Info) Description 08/08/2024 10:00 AM EST Office Visit Family Practice [place] [address] [facility] [place] [id number] Stalni Quinteros DO [address] [facility] [place] [address] Scheduled Orders Name Type Priority Associated Diagnoses Orde r Schedule EKG EKG Routine H/O atrial flutter Ordered: 10/17/2023 Scheduled Procedures Name Priority Associated Diagnoses Date/Ti me COLONOSCOPY FLEXIBLE PROXIMAL DIAGNOSTIC Recall Screen for colon cancer Health Maintenance Due Date Last Done Comments Depression Screening 1976 HIV Screening 12/25/1979 Hepatitis B (1 of 3 - 19+ 3-dose series) 12/25/1983 Cologuard 2009 Fecal Occult Blood Test 2009 Sigmoidoscopy 2009 Zoster Vaccines (1 of 2) 2014 COVID-19 Vaccine (1 - season) 2023 Diabetes Screening 08/03/2026 08/03/2023, 0 08/03/2023, 02/16/2023, Additional history exists Lipid Panel 08/03/2028 08/03/2023, 07/19/2022 Colonoscopy 11/15/2032 11/15/2022, 11/15/2022 Colorectal Cancer Screening 11/15/2032 DTaP,Tdap,and Td Vaccines (2 - Td or Tdap) 08/03/2033 08/03/2023 Influenza Vaccine (FLU shot) Completed 07/2022, 05/15/2023, 06/09/2022, Additional history exists GARDASIL-HPV IMMUNIZATION SERIES Aged Out No longer eligible based on patient's age to complete this topic MENINGOCOCCAL (MENACTRA/MENVEO) Aged Out No longer eligible based on patient's age to complete this topic Pneumococcal Vaccine: Pediatrics (0 to 5 Years) and At-Risk Patients (6 to 64 Years) Aged Out No longer eligible based on patient's age to complete this topic documented as of this encounter Medical Devices Not on filedocumented as of this encounter Visit Diagnoses Diagnosis H/O atrial flutter- Primary Personal history of other diseases of circulatory system documented in this encounter Care Teams Maintenance Plumber Relationship Specialty Start Date End Date Stalin Quinteros DO [address] [place], [place] [address]vonda [place] [address] PCP - General Family Medicine 07/14/22 documented as of this encounter"
--- OUTSIDE RECORDS SUMMARY | 2024-01-18 14:31 | External Medical Summary ---
Author Name Unknown Address Unknown Organization [id number]:[facility] [address] [place] [address] Laboratory Report Ordering Provider Test Date Status ALTAGRACIA MURRAY 08/03/2023 08:56:57 Final Observation Date Value Abnormality Reference (Units ) Status PSA 08/03/2023 08:56:57 0.75 <3.10 (ng/ mL) Final Performing Location [facility] [address] [place] [address]
--- OUTSIDE RECORDS SUMMARY | 2024-01-18 14:31 | External Medical Summary ---
Author Name Unknown Address Unknown Organization K09:[facility] [address] [place] [address] Laboratory Report Ordering Provider Test Date Status ALTAGRACIA MURRAY 08/03/2023 08:56:57 Final Observation Date Value Abnormality Reference (Units ) Status BUN 08/03/2023 08:56:57 29 Above high normal 6-20 (mg/dL) Final Creatinine 08/03/2023 08:56:57 1.2 0.6-1.2 (mg/dL) Final Glomerular filtration rate/1.73 sq M.predicted [Volume Rate/Area] in Serum, Plasma or Blood by Creatinine-based formula (CKD-EPI) 08/03/2023 08:56:57 70 >=60 (mL/min) Final eGFR is calculated based on the CKD-EPI 2020 equation SODIUM 08/03/2023 08:56:57 140 135-146 (m mol/L) Final Potassium 08/03/2023 08:56:57 4.8 3.5-5.1 (m mol/L) Final Cl 08/03/2023 08:56:57 103 98-107 (mm ol/L) Final CO2 08/03/2023 08:56:57 28 22-32 (mmo l/L) Final Anion gap 08/03/2023 08:56:57 9 7-15 (mmol /L) Final Glucose 08/03/2023 08:56:57 93 70-120 (mg /dL) Final Albumin 08/03/2023 08:56:57 4.5 3.8-5.0 (g /dL) Final AST (Aspartate aminotransferase) 08/03/2023 08:56:57 24 10-50 (U/L) Final Alk Phos 08/03/2023 08:56:57 76 35-130 (U/ L) Final Bilirubin, Total 08/03/2023 08:56:57 0.3 <=1 .2 (mg/dL) Final Calcium 08/03/2023 08:56:57 9.6 8.4-10.2 ( mg/dL) Final Protein 08/03/2023 08:56:57 6.8 6.0-8.3 (g /dL) Final ALT (Alanine aminotransferase) 08/03/2023 08:56:57 30 10-50 (U/L) Final Performing Location [facility] [place] [address]
--- OUTSIDE RECORDS SUMMARY | 2024-01-18 14:31 | External Medical Summary | Summary of Care ---
Author Name Unknown Organization [facility] Address [address] [place] [address] Phone [phone] Care Team Providers Care Bar Waiter/Waitress Name Role Phone Stalin Quinteros DO Primary Care Provider [phone] Reason for Visit * Reason Comments Outpatient Testing Encounter Details Date Type Department Care Team (Late st Contact Info) Description 08/03/2023 9:20 AM EST Laboratory Laboratory [facility] [address] [place] [address] [facility] 200 [facility] [place] [address] Hyperlipidemia with target LDL less than 130; Atrial flutter with rapid ventricular response (HCC); Hyperglycemia; Need for hepatitis C screening test; Screening PSA (prostate specific antigen) Allergies No known active allergiesdocumented as of this encounter (statuses as of 08/03/2023) Medications Medication Sig Dispensed Refills Start Date End Date Status Sotalol HCl 80 MG Oral Tablet (Betapace) Take 1 Tablet by mouth in the morning and 1 Tablet before bedtime. 180 Tablet 2 05/25/2023 Active documented as of this encounter (statuses as of 08/03/2023) Active Problems Problem Noted Date Diagnosed Date Atrial flutter with rapid ventricular response 0 07/14/2022 documented as of this encounter (statuses as of 08/03/2023) Immunizations Name Administration Dates Next Due Seasonal Influenza Vac, Quad , Cell culture, with Preserve, 6 mon and above, (Flucelvax) 05/15/2023 Seasonal Influenza Virus Vac cine, Unspecified Formulation 06/10/2023,06/09/2022 Seasonal Influenza, Quadrivalent, No Preserve, I M 04/23/2017 TDAP (age 10 and older)(Boostrix) 08/03/2023 documented as of this encounter Social History Tobacco Use Types Packs/Day Years Used Date Smoking Tobacco: Never Smokeless Tobacco: Never Alcohol Use Standard Drinks/Week Comments Yes 1 (1 standard drink = 0.6 oz pur e alcohol) Sex and Gender Information Value Date Recorded Sex Assigned at Not on file Gender Identity Not on file Sexual Orientation Not on file Job Start Date Occupation Industry Not on file Not on file Not on file documented as of this encounter Plan of Treatment Upcoming Encounters Date Type Department Care Team (Late st Contact Info) Description 08/08/2024 10:00 AM EST Office Visit [facility] [place] [facility] 200 [facility] [place] [address] Stalin Quinteros DO 200 [facility] [place] [address] Pending Results Name Type Priority Associated Diagnoses Date /Time LIPID PANEL WITH DIRECT LDL IF TG IS HIGH Lab Routine Hyperlipidemia with target LDL less than 130 08/03/2023 8:56 AM EST COMPREHENSIVE METABOLIC PANEL Lab Routine Atrial flutter with rapid ventricular response (HCC) Hyperglycemia 08/03/2023 8:56 AM EST HEMOGLOBIN A1C Lab Routine Hyperglycemia 08/03/2023 8:56 AM EST HEPATITIS C ANTIBODY SCREEN WITH PROGRESSION TO HEPATITIS C RNA QUANTITATIVE Lab Routine Need for hepatitis C screening test 08/03/2023 8:56 AM EST PSA Lab Routine Screening PSA (prostate specific antigen) 08/03/2023 8:56 AM EST HEPATITIS C ANTIBODY Lab Routine Need for hepatitis C screening test 08/03/2023 8:56 AM EST HEPATITIS C RNA ADD ON Lab Routine Need for hepatitis C screening test 08/03/2023 8:56 AM EST Scheduled Procedures Name Priority Associated Diagnoses Date/Ti me COLONOSCOPY FLEXIBLE PROXIMAL DIAGNOSTIC Recall Screen for colon cancer Health Maintenance Due Date Last Done Comments Hepatitis B (1 of 3 - 3-dose series) 1964 COVID-19 Vaccine (#1) 06/25/1965 Depression Screening 1976 HIV Screening 12/25/1979 Hepatitis C Screening 1982 Cologuard 2009 Fecal Occult Blood Test 2009 Sigmoidoscopy 2009 Zoster Vaccines (1 of 2) 2014 Diabetes Screening 02/16/2026 02/16/2023, 0 07/19/2022, 12/20/2021, Additional history exists Lipid Panel 07/19/2027 07/19/2022 Colonoscopy 11/15/2032 11/15/2022, 11/15/2022 Colorectal Cancer Screening 11/15/2032 DTaP,Tdap,and Td Vaccines (2 - Td or Tdap) 08/03/2033 08/03/2023 Influenza Vaccine (FLU shot) Completed 07/2022, 06/09/2022, 04/23/2017 GARDASIL-HPV IMMUNIZATION SERIES Aged Out No longer [...] as of this encounter Visit Diagnoses Diagnosis Hyperlipidemia with target LDL less than 130 Other and unspecified hyperlipidemia Atrial flutter with rapid ventricular response (HCC) Atrial flutter Hyperglycemia Other abnormal glucose Need for hepatitis C screening test Special screening examination for other specified viral diseases Screening PSA (prostate specific antigen) Special screening for malignant neoplasm of prostate documented in this encounter Care Teams Bar Waiter/Waitress Relationship Specialty Start Date End Date Stalin Quinteros DO [address] [place] [address] PCP - General Family Medicine 07/14/22 documented as of this encounter
--- OUTSIDE RECORDS SUMMARY | 2024-01-18 14:31 | External Medical Summary ---
Author Name Unknown Address Unknown Organization K01:[facility] - [address] [place] [address] Laboratory Report Ordering Provider Test Date Status ALTAGRACIA MURRAY 08/03/2023 08:56:57 Final Observation Date Value Abnormality Reference (Units ) Status Hep C Ab 08/03/2023 08:56:57 Negative Negative Final Further HCV quantitative hector ting not performed per protocol. Performing Location [facility] - [address] [place] [address]
--- OUTSIDE RECORDS SUMMARY | 2024-01-18 14:31 | External Medical Summary | Summary of Care ---
Author Name Unknown Organization [facility] Address [address] [place] [address] Phone [phone] Care Team Providers Care Home Care Coordinator Name Role Phone Stalin Quinteros DO Primary Care Provider [phone] Reason for Visit * Reason Comments Physical-Exam Encounter Details Date Type Department Care Team ([facility] st Contact Info) Description 08/03/2023 8:00 AM EST Office Visit Family [facility] 200 [facility] [place] [address] Jelena Aguilar PA-C 200 [facility] [place] [address] Encounter for routine adult health examination without abnormal findings*; Atrial flutter with rapid ventricular response (HCC); Hyperlipidemia with target LDL less than 130; Hyperglycemia; Need for hepatitis C screening test; Need for hxumxkozog-iagazko-rk rtussis (Tdap) vaccine; Screening PSA (prostate specific antigen); Body mass index 32.0-32.9, adult; Class 1 obesity due to excess calories with serious comorbidity and body mass index (BMI) of 32.0 to 32.9 in adult Allergies No known active allergiesdocumented as of this encounter (statuses as of 08/03/2023) Medications Medication Sig Dispensed Refills Start Date End Date Status Sotalol HCl 80 MG Oral Tablet (Betapace) Take 1 Tablet by mouth in the morning and 1 Tablet before bedtime. 180 Tablet 2 05/25/2023 Active SHINGRIX 50 MCG injection TO BE GIVEN BY PHARMACIST PER STANDING ORDER 1 11/03/2017 4 Discontinued Doxycycline Hyclate 100 MG Oral CapsuleIndication s:Acute bronchitis, unspecified organism Take 1 Capsule by mouth in the morning and 1 Capsule before bedtime. Do all this for 7 days. Take for 7 days. 14 Capsule 0 07/20/2023 4 Discontinued predniSONE 20 MG Oral Tablet (Deltasone)Indica tions:Acute bronchitis, unspecified organism Take 2 Tablets by mouth in the morning. 10 Tablet 0 07/20/2023 4 Discontinued documented as of this encounter (statuses as [...] Sign Reading Time Taken Comments Blood Pressure 128/72 08/03/2023 8:11 AM EST Pulse 57 08/03/2023 8:11 AM EST Temperature 36.2 C (97.1 F) 08/03/2023 8:11 AM ES T Respiratory Rate 16 08/03/2023 8:11 AM EST Oxygen Saturation - - Inhaled Oxygen Concentration - - Weight 110.2 kg (243 lb) 08/03/2023 8:11 AM EST Height 182.9 cm (6') 08/03/2023 8:11 AM EST Body Mass Index 32.96 08/03/2023 8:11 AM EST documented in this encounter Progress Notes * Jelena Aguilar PA-C - 08/03/2023 8:43 AM EST Subjective Gatito rBuner is a 57 year old male that presents for Physical-Exam 57 y/o male presents for routine adult exam. He has no questions or concerns. Taking sotolol for a fib with RVR. Due for his yearly cardio follow-up in September. Was cancelled and never rescheduled- he will reschedule today. Was OK to stop eliquis per cardio, sotolol for life. Norecurrence of symptoms. Due to recheck labs. Last labs with elevated glucose but admits he wasn't fasting. Borderline lipids. Will recheck today- had a donut around 3am, otherwise nothing to eat. Routine -shingles vaccine done at [facility], will get records -flu vaccine done at [facility] this year- added as historical -labs ordered -tdap given today He denies fevers, chills, chest pain, SOB,nausea, vomiting, diarrhea. Allergies and medications reviewed. Review of Systems Constitutional: Negative for activity change, chills, fatigue and fever. HENT: Negative for congestion, ear pain, hearing loss, sinus pressure, sinus pain, sneezing, sore throat, tinnitus and trouble swallowing. Eyes: Negative for pain, discharge, redness and visual disturbance. Respiratory: Negative for cough, chest tightness, shortness of breath and wheezing. Cardiovascular: Negative for chest pain, palpitations and leg swelling. Gastrointestinal: Negative for abdominal pain, blood in stool, diarrhea, nausea and vomiting. Endocrine: Negative for polydipsia, polyphagia and polyuria. Genitourinary: Negative for dysuria, flank pain, frequency, hematuria and urgency. Musculoskeletal: Negative for arthralgias, joint swelling, myalgias and neck pain. Skin: Negative for pallor and rash. Allergic/Immunologic: Negative for environmental allergies, food allergies and immunocompromised state. Neurological: Negative for dizziness, syncope, light-headedness, numbness and headaches. Hematological: Does not bruise/bleed easily. Psychiatric/Behavioral: Negative for confusion, hallucinations and suicidal ideas. The patient is not nervous/anxious. Objective BP 128/72 | Pulse 57 | Temp 36.2 C (97.1 F) | Resp 16 | Ht 1.829 m (6') | Wt 110.2 kg (243 lb) | BMI 32.96 kg/m | BSA 2.37 m Body mass index is 32.96 kg/m. BP Readings from Last 3 Encounters: 08/03/23 128/72 07/20/23 134/68 11/15/22 131/77 Wt Readings from Last 3 Encounters: 08/03/23 110.2 kg (243 lb) 07/20/23 113.7 kg (250 lb 9.6 oz) 11/15/22 111.1 kg (245 lb) Physical Exam Vitals and nursing note reviewed. Constitutional: General: He is not in acute distress. Appearance: Normal appearance. HENT: Head: Normocephalic and atraumatic. Right Ear: Tympanic membrane and ear canal normal. Left Ear: Tympanic membrane and ear canal normal. Nose: No congestion or rhinorrhea. Mouth/Throat: Mouth: Mucous membranes are moist. Pharynx: No oropharyngeal exudate or posterior oropharyngeal erythema. Eyes: General: No scleral icterus. Extraocular Movements: Extraocular movements intact. Conjunctiva/sclera: Conjunctivae normal. Pupils: Pupils are equal, round, and reactive to light. Cardiovascular: Rate and Rhythm: Normal rate and regular rhythm. Heart sounds: Normal heart sounds. No murmur heard. No friction rub. No gallop. Pulmonary: Breath sounds: Normal breath sounds. No wheezing, rhonchi or rales. Abdominal: General: Bowel sounds are normal. Palpations: Abdomen is soft. Tenderness: There is no abdominal tenderness. There is no right CVA tenderness or left CVA tenderness. Musculoskeletal: General: No swelling, tenderness or deformity. Normal range of motion. Cervical back: Neck supple. No muscular tenderness. Right lower leg: No edema. Left lower leg: No edema. Lymphadenopathy: Cervical: No cervical adenopathy. Skin: General: Skin is warm and dry. Capillary Refill: Capillary refill takes less than 2 seconds. Findings: No rash. Neurological: General: No focal deficit present. Mental Status: He is alert and oriented to person, place, and time. Cranial Nerves: No cranial nerve deficit. Gait: Gait normal. Deep Tendon Reflexes: Reflexes normal. Psychiatric: Mood and Affect: Mood normal. Behavior: Behavior normal. Assessment and plan 1. Encounter for routine adult health examination without abnormal findings 2. Atrial flutter with rapid ventricular response (HCC) -continue sotolol and reschedule cardo appt - COMPREHENSIVE METABOLIC PANEL; Future 3. Hyperlipidemia with target LDL less than 130 - LIPID PANEL WITH DIRECT LDL IF TG IS HIGH; Future 4. Hyperglycemia - COMPREHENSIVE METABOLIC PANEL; Future - HEMOGLOBIN A1C; Future 5. Need for hepatitis C screening test - HEPATITIS C ANTIBODY SCREEN WITH PROGRESSION TO HEPATITIS C RNA QUANTITATIVE; Future 6. Need for cmromcozrb-mzkcogv-vbwnnlosg (Tdap) vaccine - TDAP (AGE 10 AND OLDER)(BOOSTRIX) 7. Screening PSA (prostate specific antigen) - PSA; Future 8. Body mass index 32.0-32.9, adult 9. Class 1 obesity due to excess calories with serious comorbidity and body mass index (BMI) of 32.0 to 32.9 in adult Follow up Follow-up: Return in about 1 year (around 08/03/2024). | Check-out note: CPE Labs today Schedule yearly cardiology follow (got cancelled when [facility] left) Total time today including reviewing chart before the visit, pertinent labs, imaging reports, face to face time, and documentation time was 30 minutes. The above was discussed and understanding was expressed. Jelena Aguilar PA-C documented in this encounter Nursing Notes * Jenny Jean LPN - 08/03/2023 8:12 AM EST CPE No concerns at this time documented in this encounter Plan of Treatment Upcoming Encounters Date Type Department Care Team (Latest Contact Info) Description 08/03/2023 9:20 AM EST Laboratory Laboratory [facility] [place] [address] [place] [id number] Jovita Braga [facility] [address] [place] [address] [address] Hyperlipidemia with target LDL less than 130; Atrial flutter with rapid ventricular response (HCC); Hyperglycemia; Need for hepatitis C screening test; Screening PSA (prostate specific antigen) 08/08/2024 10:00 AM EST Office Visit [facility] [place] [address] [place] [address] Stalin Quinteros, DO 200 [facility] [place] [address] Pending Results Name Type Priority Associated Diagnoses [...] (prostate specific antigen) 08/03/2023 8:56 AM EST Scheduled Orders Name Type Priority Associated Diagnoses Orde r Schedule LIPID PANEL WITH DIRECT LDL IF TG IS HIGH Lab Routine Hyperlipidemia with target LDL less than 130 Expected: 08/03/2023, Expires: 08/03/2024 COMPREHENSIVE METABOLIC PANEL Lab Routine Atrial flutter with rapid ventricular response (HCC) Hyperglycemia Expected: 08/03/2023 (Approximate), Expires: 08/02/2024 HEMOGLOBIN A1C Lab Routine Hyperglycemia Expected: 08/03/2023 (Approximate), Expires: 08/02/2024 HEPATITIS C ANTIBODY SCREEN WITH PROGRESSION TO HEPATITIS C RNA QUANTITATIVE Lab Routine Need for hepatitis C screening test Expected: 08/03/2023 (Approximate), Expires: 08/02/2024 PSA Lab Routine Screening PSA (prostate specific antigen) Expected: 08/03/2023 (Approximate), Expires: 08/02/2024 Scheduled Procedures Name Priority Associated Diagnoses Date/Ti [...] as of this encounter Visit Diagnoses Diagnosis Encounter for routine adult health examination without abnormal findings- Primary Atrial flutter with rapid ventricular response (HCC) Atrial flutter Hyperlipidemia with target LDL less than 130 Other and unspecified hyperlipidemia Hyperglycemia Other abnormal glucose Need for hepatitis C screening test Special screening examination for other specified viral diseases Need for iljoevuuhe-ehkouyh-pfqpzpxyw (Tdap) vaccine Need for prophylactic vaccination with combined eiabgbqnqq-qegmnje-xfiedvagi (DTP) vaccine Screening PSA (prostate specific antigen) Special screening for malignant neoplasm of prostate Body mass index 32.0-32.9, adult Body Mass Index 32.0-32.9, adult Class 1 obesity due to excess calories with serious comorbidity and body mass index (BMI) of 32.0 to 32.9 in adult Hyperlipidemia with target LDL less than 130 Other and unspecified hyperlipidemia Atrial flutter with rapid ventricular response (HCC) Atrial flutter Hyperglycemia Other abnormal glucose Need for hepatitis C screening test Special screening examination for other specified viral diseases Screening PSA (prostate specific antigen) Special screening for malignant neoplasm of prostate documented in this encounter Care Teams Home Care Coordinator Relationship Specialty Start Date End Date Stalin Quinteros DO [address] [place] [address] PCP - General Family Medicine 07/14/22 documented as of this encounter"
--- OUTSIDE RECORDS SUMMARY | 2024-01-18 14:31 | External Medical Summary | Summary of Care ---
Author Name Unknown Organization [facility] Address [address] [place] [address] Phone [phone] Care Team Providers Care Planner Name Role Phone Stalin Quinteros DO Primary Care Provider [phone] Reason for Visit * Reason Onset Date Comments Test Results 08/12/2023 labs Encounter Details Date Type Department Care Team (Late st Contact Info) Description 08/12/2023 Telephone Family Practice [facility] 200 [facility] [place] [address] Jelena Aguilar PA-C 200 [facility] [place] [address] Test Results (labs) Allergies No known active allergiesdocumented as of this encounter (statuses as of 08/12/2023) Medications Medication Sig Dispensed Refills Start Date End Date Status Sotalol HCl 80 MG Oral Tablet (Betapace) Take 1 Tablet by mouth in the morning and 1 Tablet before bedtime. 180 Tablet 2 05/25/2023 Active documented as of this encounter (statuses as of 08/12/2023) Active Problems Problem Noted Date Diagnosed Date Atrial flutter with rapid ventricular response 0 07/14/2022 documented as of this encounter (statuses as of 08/12/2023) Immunizations Name Administration Dates Next Due Seasonal [...] on file documented as of this encounter Miscellaneous Notes * Telephone Encounter - Jelena Aguilar PA-C - 08/12/2023 6:58 PM EST Please let Gatito know his cholesterol is still elevated and his sugar indicates that he is pre-diabetic. I would recommend he start a cholesterol medication (Crestor 10mg) daily and metformin 500mg twice a day to help prevent diabetes. Please let me know if he is willing ot start these medications. documented in this encounter Plan of Treatment Upcoming Encounters Date Type Department Care Team (Late st Contact Info) Description 08/08/2024 10:00 AM EST Office Visit Family Practice [facility] 200 [facility] [place] [address] Stalin Quinteros, DO 200 [facility] [place] [address] Scheduled Procedures Name Priority Associated Diagnoses Date/Ti me COLONOSCOPY FLEXIBLE PROXIMAL DIAGNOSTIC Recall Screen for colon cancer Health Maintenance Due Date Last Done Comments Hepatitis B (1 of 3 - 3-dose series) 1965 COVID-19 Vaccine (#1) 06/25/1965 Depression Screening 1976 HIV Screening 12/25/1979 Cologuard 2009 Fecal Occult Blood Test 2009 Sigmoidoscopy 2009 Zoster Vaccines (1 of 2) 2014 Diabetes Screening 08/03/2026 08/03/2023, 0 08/03/2023, 02/16/2023, [...] Not on filedocumented as of this encounter Care Teams Planner Relationship Specialty Start Date End Date Stalin Quinteros DO [address] [place] [address] PCP - General Family Medicine 07/14/22 documented as of this encounter
--- OUTSIDE RECORDS SUMMARY | 2024-01-18 14:31 | External Medical Summary | Summary of Care ---
Author Name Unknown Organization [facility] Address [address] [place] [address] Phone [phone] Care Team Providers Care Computer Typesetter Name Role Phone Stalin Quinteros DO Primary Care Provider [phone] Reason for Visit * Reason Onset Date Comments Test Results 08/12/2023 labs Encounter Details Date Type Department Care Team (Late st Contact Info) Description 08/12/2023 Telephone Family Practice [facility] 200 [facility] [place] [address] Jelena Aguilar PA-C 200 [facility] [place] [place] [address] Test Results (labs) Allergies No known active allergiesdocumented as of this encounter (statuses as of 08/15/2023) Medications Medication Sig Dispensed Refills Start Date End Date Status Sotalol HCl 80 MG Oral Tablet (Betapace) Take 1 Tablet by mouth in the morning and 1 Tablet before bedtime. 180 Tablet 2 05/25/2023 Active documented as of this encounter (statuses as of 08/15/2023) Active Problems Problem Noted Date Diagnosed Date Atrial flutter with rapid ventricular response 0 07/14/2022 documented as of this encounter (statuses as of 08/15/2023) Immunizations Name Administration Dates Next Due Seasonal [...] as of this encounter Miscellaneous Notes * Addendum Note - Verena Concepcion LPN - 08/15/2023 9:23 AM ESTAddended by: VERENA CONCEPCION on: 08/15/2023 09:23 AM Modules accepted: Orders * Telephone Encounter - Verena Concepcion LPN - 08/15/2023 9:07 AM EST Called pt. Informed of message. He verbalized understanding. Pt would like to work on diet and maybe check labs in 6 months or so. Orders pending if agreeable. * Telephone Encounter - Jelena Aguilar PA-C [...] Visit [facility] [place] [facility] [address] [place] [address] Stalin Quinteros, [address] [place] [address] Scheduled Procedures Name Priority Associated Diagnoses Date/Ti [...] filedocumented as of this encounter Care Teams Computer Typesetter Relationship Specialty Start Date End Date Stalin Quinteros DO [address] [place] [address] PCP - General Family Medicine 07/14/22 documented as of this encounter
--- OUTSIDE RECORDS SUMMARY | 2024-01-18 14:31 | External Medical Summary ---
Author Name Unknown Address Unknown Organization K01:[facility] [address] [place] [address] Laboratory Report Ordering Provider Test Date Status ALTAGRACIA MURRAY 08/03/2023 08:56:57 Final Observation Date Value Abnormality Reference (Units ) Status Triglyceride 08/03/2023 08:56:57 163 <=174 ( mg/dL) Final Triglyceride Reference Range s (mg/dL):
<150 Acceptable
150-174 Borderline high
175-499 High
>=500 Very high Cholesterol 08/03/2023 08:56:57 237 Above high normal <200 (mg/dL) Final Total Cholesterol Reference Ranges (mg/dL):
<200 Desirable
200-239 Borderline high
>=240 High HDL 08/03/2023 08:56:57 52 >39 (mg/dL ) Final HDL Cholesterol Reference Ra nges (mg/dL):
>=60 High (Desirable)
<50 Low (Undesirable) For Females
<40 Low (Undesirable) For Males NON-HDL CHOLESTEROL 08/03/2023 08:56:57 185 Above high normal <=159 (mg/dL) Final Non-HDL Cholesterol Referenc e Range (mg/dL):
<100 Target level for high risk ASCVD patient
<130 Optimal for general population
130-159 Near optimal for general population
160-189 Borderline High
190-219 High
>=220 Very High LDL, (calculated) 08/03/2023 08:56:57 152 Above high n ormal <=129 (mg/dL) Final LDL Cholesterol Reference Ra nges (mg/dL):
<70 Target level for high risk ASCVD patient
<100 Optimal for general population
100-129 Near optimal for general population
130-159 Borderline high
160-189 High
>=190 Very high Performing Location [facility] [address] [facility] [address]
--- OUTSIDE RECORDS SUMMARY | 2024-01-18 14:31 | External Medical Summary ---
Author Name Unknown Address Unknown Organization [id number]:[facility] [place] - [address] [facility] [address] Laboratory Report Ordering Provider Test Date Status ALTAGRACIA MURRAY 08/03/2023 08:56:57 Final Observation Date Value Abnormality Reference (Units ) Status HbA1C 08/03/2023 08:56:57 6.1 Above high normal 4. 0-5.6 (%) Final The use of HbA1c to monitor glycemic status is based on normal hemoglobin and HbA composition. This test should not be used in patients with abnormal hemoglobin that affects the half life of the red blood cell or the in vivo glycation rates. Glucose, estimated average 08/03/2023 08:56:57 128 Above high normal <126 (mg/dL) Duncan gaston Performing Location [facility] [address] [facility] [facility] [address]
--- OUTSIDE RECORDS SUMMARY | 2024-01-18 14:31 | External Medical Summary | Summary of Care ---
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 Water Filterer Name Role Phone Stalin Quinteros DO Primary Care Provider [phone] Reason for Visit * Reason Onset Date Comments Test Results 08/12/2023 labs Encounter Details Date Type Department Care Team (Late st Contact Info) Description 08/12/2023 Telephone Family Practice [facility] [address] [facility] [place] [address] Trevor Aguilar PA-C [address] [facility] [place] [address] Test Results (labs) Allergies No known active [...] encounter Miscellaneous Notes * Addendum Note - Trevor Aguilar PA-C - 08/15/2023 11:39 AM ESTAddended by: TREVOR AGUILAR on: 08/15/2023 11:39 AM Modules accepted: Orders * Telephone Encounter - Trevor Aguilar PA-C - 08/15/2023 11:38 AM EST Orders signed. * Addendum Note - Verena Concepcion LPN [...] pending if agreeable. * Telephone Encounter - Trevor Aguilar PA-C - 08/12/2023 6:58 PM EST [...] 10:00 AM EST Office Visit Family Practice [facility] [address] [facility] [place] [address] Stalin Quinteros DO [address] [facility] [place] [id number] Scheduled Orders Name Type Priority Associated Diagnoses Orde r Schedule HEMOGLOBIN A1C Lab Routine Pre-diabetes Expected: 02/13/2024 (Approximate), Expires: 08/14/2024 LIPID PANEL WITH DIRECT LDL IF TG IS HIGH Lab Routine Mixed hyperlipidemia Expected: 02/13/2024, Expires: 08/15/2024 Scheduled Procedures Name Priority Associated Diagnoses Date/Ti [...] as of this encounter Visit Diagnoses Diagnosis Pre-diabetes- Primary Other abnormal glucose Mixed hyperlipidemia documented in this encounter Care Teams Water Filterer Relationship Specialty Start Date End Date Stalin Quinteros DO [address] [place] [address] PCP - General Family Medicine 07/14/22 documented as of this encounter
[2024-01-18 15:27] LABS: Appearance Urine Clear (Clear); Bilirubin Urine Negative (Negative); Blood Urine Negative (Negative); Color Urine Yellow; Glucose Urine UA Negative (Negative); Ketones Urine Negative (Negative); Leukocyte Esterase Urine Negative (Negative); Nitrite Urine Negative (Negative); Protein Urine Negative (Negative); Specific Gravity Urine 1.033 (1.000-1.030); Urobilinogen Urine Negative (Negative); pH Urine 5.5 (4.5-7.5)
[2024-01-18] MEDS: KETOROLAC TROMETHAMINE 15 MG/ML VIAL IV ONE (17:00)
[2024-01-18] MEDS: ACETAMINOPHEN 1,000 MG/100 ML VIAL IV SCH (19:32)
[2024-01-18] MEDS: oxyCODONE HCL IR 5 MG TAB (IMMEDIATE RELEASE) PO STA (22:23)
[2024-01-19] MEDS: oxyCODONE HCL IR 5 MG TAB (IMMEDIATE RELEASE) PO PRN (01:39)
[2024-01-19 10:35] LABS: Hematocrit (blood only) 40.3 % (42.0-52.0); Hemoglobin 13.1 g/dl (14.0-18.0); Mean Corpuscular Hemoglobin 29.4 pg (25.0-34.0); Mean Corpuscular Hgb Conc 32.5 g/dL (32.0-36.0); Mean Corpuscular Volume 90.6 fL (80.0-100.0); Mean Platelet Volume 10.2 fL (9.4-12.4); Platelet Count 121 K/uL (130-400); RDW Coefficient of Variation 13.8 % (11.5-14.5); RDW Standard Deviation 46.4 fL (36.4-46.3); Red Blood Count 4.45 M/uL (4.70-6.10); White Blood Count 7.71 K/ul (4.8-10.8)
[2024-01-19 10:48] LABS: Albumin Globulin Ratio 1.5 (0.9-2); Albumin Level 3.9 gm/dl (3.4-5.0); BUN Creatinine Ratio 21.4 (10-20); Bilirubin,Total 0.7 mg/dl (0.2-1.0); Calcium 8.4 mg/dl (8.6-10.3); Creatinine Clr Calc Pharmacy 105.1 ml/min; Est GFR (African American) 97.4 ml/min; Est GFR (Non-African American) 84.1 ml/min; Globulin 2.6 gm/dl (2.5-4.0); Potassium 3.9 mmol/L (3.5-5.1); Total Protein 6.5 gm/dl (6.0-8.3)
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
== END 2024-01-19 16:08 | disposition home or self-care (01) ==
LOC: 3W 18:35 → ED 18:35 → 3W 01-18 02:56